=== PATIENT | female | born 1940 | race Caucasian/White ===

== ENCOUNTER 2018-08-04 14:03 | Emergency (ER) | payer MEDICARE, OTHER ==
[~2018-08-04] VITALS: Ht 165.1 cm; Wt 79.4 kg
--- OUTSIDE RECORDS SUMMARY | ~2018-08-04 | XMS | Encounter Summary ---
Demographics + + + | Address | [address] | | | [place] [address] | + + + | Home Phone | | + + + | Preferred Language | Unknown | + + + | Marital Status | | + + + | Yazidi Affiliation | 1077 | + + + | Race | Unknown | + + + | Ethnic Group | Unknown | + + + Author + + + | Author | [facility] | | | and [place] | + + + | Organization | [facility] | | | and [place] | + + + | Address | Unknown | + + + | Phone | Unavailable | + + + Support + + + + + | Name | Relationship | Address | Phone | + + + + + | Rafiq Farias | ECON | [address] | | | | | [place] | | | | | [address] | | + + + + + Care Team Providers + +------+ + | Care Finance Controller Name | Role | Phone | + +------+ + | Kahlil Campbell MD | PCP | | + +------+ + Reason for Visit + + + | Reason | Comments | + + + | Medication Question | Name of the H2 eladio Dr. Prabhakar told her to use in 2017 | + + + Encounter Details +--------+ + + + + | Date | Type | Department | Care Team | Description | +--------+ + + + + | 05/27/ | Telephone | [facility] | Shai Prabhakar MD | Medication Question | | 2019 | | GASTROENTEROLOGY | [address], [facility] | (Name of the H2 | | | | [address] | [address] [place], [place] | eladio Dr. Prabhakar | | | | [address] [place] | [address] | told her to use in | | | | [address] | | 2017) | | | | [phone] | | | +--------+ + + + + Social History + +-------+ +--------+ + | Tobacco Use | Types | Packs/Day | Years | Date | | | | | Used | | + +-------+ +--------+ + | Former Smoker | | 0.5 | 40 | Quit: 05/13/1993 | + +-------+ +--------+ + + +---+---+---+ | Smokeless Tobacco: | | | | | Never Used | | | | + +---+---+---+ + + | Comments: stopped smoking 10 years ago | + + + + +---------+ + | Alcohol Use | Drinks/We | oz/Week | Comments | | | ek | | | + + +---------+ + | Yes | 1 | 0.6 | once weekly | | | Glasses | | | | | of wine | | | + + +---------+ + + + + | Sex Assigned at | Date Recorded | | | | + + + | Not on file | | + + + as of this encounter Plan of Treatment Not on fileas of this encounter Visit Diagnoses Not on filein this encounter"
--- OUTSIDE RECORDS SUMMARY | ~2018-08-04 | XMS | Clinical Summary ---
Demographics + + + | Address | [address] [facility] [address] [facility] | | | [place] [address] | + + + | Home Phone | | + + + | Preferred Language | Unknown | + + + | Marital Status | | + + + | Anabaptism Affiliation | MET | + + + | Race | White | + + + | Ethnic Group | Not or | + + + Author + + + | Author | [facility] | + + + | Organization | [facility] | + + + | Address | Unknown | + + + | Phone | Unavailable | + + + Support + + + + + | Name | Relationship | Address | Phone | + + + + + | SUSANNAH FARIAS | ECON | [address] | | | | | [place] | | | | | [address] | | + + + + + Care Team Providers + +------+ + | Care Basket Bottom Machine Operator Name | Role | Phone | + +------+ + | No Pcp Per Patient | PP | Unavailable | + +------+ + Source Comments [facility] and [facility] Allergies + + + + + + | Active Allergy | Reactions | Severity | Noted | Comments | | | | | Date | | + + + + + + | Erythromycin | Unknown | Low | 02/20/20 | Stomach pain | | | | | 16 | | + + + + + + | Iodine | Hives | | 03/29/20 | | | | | | 08 | | + + + + + + | Latex | Rash | Low | 10/10/20 | Irritation - | | | | | 16 | sensitivity | + + + + + + | Penicillins | Hives | Low | 10/10/20 | Welts on neck | | | | | 16 | | + + + + + + Current Medications + + + +---------+------+------+-------+ | Prescription | Sig. | Disp. | Refills | Star | End | Statu | | | | | | t | Date | s | | | | | | Date | | | + + + +---------+------+------+-------+ | LIPITOR ORAL | None Entered | | | | | Activ | | | | | | | | e | + + + +---------+------+------+-------+ | LEXAPRO ORAL | None Entered | | | | | Activ | | | | | | | | e | + + + +---------+------+------+-------+ | LEVOTHYROXINE ORAL | None Entered | | | | | Activ | | | | | | | | e | + + + +---------+------+------+-------+ | CALCIUM-D ORAL | None Entered | | | | | Activ | | | | | | | | e | + + + +---------+------+------+-------+ | polyvinyl | Instill 1 Drop into | 3 | 3 | 12/2 | | Activ | | pyrrolidone-polyviny | both eyes as needed. | bottles, | | 2/20 | | e | | l alcohol | 4 to 6 times daily | 45ml | | 09 | | | | (FRESHKOTE) | | | | | | | | 2-0.9-1.8 % | | | | | | | | Ophthalmic Drops | | | | | | | + + + +---------+------+------+-------+ | MAGNESIUM ORAL | Take by mouth. | | | | | Activ | | | | | | | | e | + + + +---------+------+------+-------+ Active Problems + + + | Problem | Noted Date | + + + | Epiphora due to insufficient drainage | 12/05/2012 | + + + | Keratoconjunctivitis sicca (HCC) | 04/06/2008 | + + + + + | Overview: ICD10 | + + Family History + + +------+ + | Medical History | Relation | Name | Comments | + + +------+ + | Cancer | | | benson Bess nephew, grandmother | + + +------+ + + +------+--------+ + | Relation | Name | Status | Comments | + +------+--------+ + Social History + +-------+ +--------+------+ | Tobacco Use | Types | Packs/Day | Years | Date | | | | | Used | | + +-------+ +--------+------+ | Former Smoker | | | | | + +-------+ +--------+------+ + + | Comments: Quit 14 yrs ago | + + + + +---------+ + | Alcohol Use | Drinks/We | oz/Week | Comments | | | ek | | | + + +---------+ + | Yes | | | Occasional | + + +---------+ + + + + | Sex Assigned at | Date Recorded | | | | + + + | Not on file | | + + + Plan of Treatment + + + + + | Health Maintenance | Due Date | Last Done | Comments | + + + + + | Pneumococcal (Adult) | | | | | (1 of 2 - PCV13) | 8 | | | + + + + + | Influenza (Flu) | | | | | vaccination (#1) | 8 | | | + + + + + Results Not on filefrom Last 3 Months Insurance + +--------+ +--------+ + + | Payer | Benefi | Subscriber | Type | Phone | Address | | | t Plan | ID | | | | | | / | | | | | | | Group | | | | | + +--------+ +--------+ + + | MEDICARE | MEDICA | xxxxxxxxxx | Medica | [phone]-- | [address] | | | RE A & | | re | [phone] | [place] [address] | | | B | | | | | + +--------+ +--------+ + + | MODA MEDICARE | MODA | xxxxxxxxx | POS | [phone] | [address] [address] | | SUPPLEMENT | MEDICA | | | [phone] | [place] [address] | | | RE | | | | | | | SUPPLE | | | | | | | MENT | | | | | + +--------+ +--------+ + + + +--------+ +--------+ + + | Guarantor Name | Accoun | Relation to | Date | Phone | Billing Address | | | t Type | Patient | of | | | | | | | | | | + +--------+ +--------+ + + | GABBY FARIAS | Person | Self [birth year] | Home: | [address] | | | al/Fam | | 1941 | [phone] | [place] [address] | | | keena | | | [phone] | | + +--------+ +--------+ + +"
--- OUTSIDE RECORDS SUMMARY | ~2018-08-04 | XMS | Clinical Summary ---
Demographics + + + | Address | [address] | | | [place] [address] | + + + | Home Phone | | + + + | Preferred Language | Unknown | + + + | Marital Status | | + + + | Holiness Affiliation | 1077 | + + + | Race | Unknown | + + + | Ethnic Group | Unknown | + + + Author + + + | Author | [facility] | | | and [place] | + + + | Organization | [facility] | | | and Garciaana [...] [place] | | | | | [address] | | + + + + + Care Team Providers + +------+ + | Care Plant And Equipment Worker Name | Role | Phone | + +------+ + | Kahlil Campbell MD | PP | | + +------+ + Allergies + + + + + + | Active Allergy | Reactions | Severity | Noted | Comments | | | | | Date | | + + + + + + | Codeine | | | 03/30/20 | I don't remember | | | | | 15 | | + + + + + + | Erythromycin | Other (See Comments) | Low | | Stomach pain | + + + + + + | Iodine | Hives | Low | | IV Contrast caused | | | | | | Welts on neck | + + + + + + | Latex | Rash | Low | 04/19/20 | Irritation - | | | | | 10 | sensitivity | + + + + + + | Penicillins | Hives | Low | 04/19/20 | Welts on neck | | | | | 10 | | + + + + + + Current Medications + + + +---------+------+------+-------+ | Prescription | Sig. | Disp. | Refills | Star | End | Statu | | | | | | t | Date | s | | | | | | Date | | | + + + +---------+------+------+-------+ | cholecalciferol | Take 1,000 Units by | | | 09/1 | | Activ | | (VITAMIN D-3) 1000 | mouth Daily. | | | 4/20 | | e | | UNITS TABS | | | | 12 | | | + + + +---------+------+------+-------+ | hydrocortisone | Apply a thin layer | | | 09/1 | | Activ | | 2.5% cream | to the affected | | | 4/20 | | e | | | areas twice daily | | | 12 | | | + + + +---------+------+------+-------+ | aspirin 81 MG | Take two by mouth | | | 09/1 | | Activ | | tablet | daily. | | | 4/20 | | e | | | | | | 12 | | | + + + +---------+------+------+-------+ | escitalopram | Take 10 mg by mouth | | | 09/1 | | Activ | | (LEXAPRO) 10 mg | Daily. | | | 420 | | e | | tablet | | | | 12 | | | + + + +---------+------+------+-------+ | Psyllium | POWD - Take as | | | 09/1 | | Activ | | (METAMUCIL PO) | directed once daily | | | 4/20 | | e | | | | | | 12 | | | + + + +---------+------+------+-------+ | atorvaSTATin | Take 10 mg by mouth | | | 09/1 | | Activ | | (LIPITOR) 10 mg | Daily. | | | 4/20 | | e | | tablet | | | | 12 | | | + + + +---------+------+------+-------+ | [place]-3 Fatty | CPDR - one by mouth | | | 12/0 | | Activ | | Acids (OMEGA 3 PO) | daily | | | 8/20 | | e | | | | | | 10 | | | + + + +---------+------+------+-------+ | Calcium Carbonate | 1/2 tablet daily | | | 1 | | Activ | | 1500 MG TABS | | | | 4/20 | | e | | | | | | 12 | | | + + + +---------+------+------+-------+ | melatonin 3 mg | Take 3 mg by mouth | | | | | Activ | | TABS | nightly. | | | | | e | + + + +---------+------+------+-------+ | levothyroxine | Take 88 mcg by mouth | | | 01/11 | | Activ | | (SYNTHROID, | Daily. | | | 08/30 | | e | | LEVOTHROID) 75 MCG | | | | 12 | | | | tablet | | | | | | | + + + +---------+------+------+-------+ | Magnesium 500 MG | Take 500 mg by mouth | | | | | Activ | | tablet | Daily. | | | | | e | + + + +---------+------+------+-------+ | doxycycline | take 1 tablet by | | 0 | | | Activ | | (VIBRAMYCIN) 100 mg | mouth twice a day | | | 11/29 | | e | | tablet | | | | 17 | | | + + + +---------+------+------+-------+ | FRESHKOTE 2.7-2 % | use once daily into | | 0 | 03/13 | | Activ | | ophthalmic solution | affected eye if | | | 06/01 | | e | | | needed as directed | | | 17 | | | + + + +---------+------+------+-------+ | tretinoin | apply SPARINGLY to | | 1 | 10/0 | | Activ | | (RETIN-A) 0.05 % | affected area once | | | 4/20 | | e | | cream | daily at bedtime | | | 17 | | | + + + +---------+------+------+-------+ | triamcinolone | apply 1 INCH | | 0 | 11/2 | | Activ | | (KENALOG) 0.1% | topically to | | | 7/20 | | e | | lotion | affected area FOR | | | 17 | | | | | ITCHING ON SCALP | | | | | | | | once daily | | | | | | + + + +---------+------+------+-------+ | cetirizine | Take 10 mg by mouth | | | | | Activ | | (ZYRTEC) 10 mg | Daily. | | | | | e | | tablet | | | | | | | + + + +---------+------+------+-------+ | gentamicin 0.1% | apply to affected | | 0 | 12/0 | | Activ | | cream | area twice a day | | | 7/20 | | e | | | | | | 17 | | | + + + +---------+------+------+-------+ | Escitalopram | Take by mouth. | | | | | Activ | | Oxalate (LEXAPRO PO) | | | | | | e | + + + +---------+------+------+-------+ | Atorvastatin | Take by mouth. | | | | | Activ | | Calcium (LIPITOR PO) | | | | | | e | + + + +---------+------+------+-------+ | nitroglycerin | Place 1 inch | 1 Tube | 1 | 05/3 | | Activ | | (RECTIV) 0.4% rectal | rectally Twice | | | 0/20 | | e | | ointment | daily as needed for | | | 18 | | | | | Pain. Or compounded | | | | | | | | formula | | | | | | + + + +---------+------+------+-------+ Active Problems + + + | Problem | Noted Date | + + + | Lower esophageal ring (Yeni) | 04/24/2017 | + + + | Unspecified hypothyroidism | 04/22/2014 | + + + + + | Overview: ICD-10 Record update | + + + + + | Other specified disorder of rectum and anus | 04/22/2014 | + + + | Unspecified asthma(493.90) | 04/22/2014 | + + + + + | Overview: ICD-10 Record update | + + + + + | Unspecified disorder of esophagus | 04/22/2014 | + + + + + | Overview: ICD-10 Record update | + + + + + | Other and unspecified hyperlipidemia | 04/22/2014 | + + + | Disorder of bone and cartilage, unspecified | 04/22/2014 | + + + + + | Overview: ICD-10 Record update | + + + + + | Depressive disorder, not elsewhere classified | 04/22/2014 | + + + + + | Overview: JUSTIN [id number] | + + + + + | Unspecified menopausal and postmenopausal disorder | 04/22/2014 | + + + + + | Overview: ICD-10 Record update | + + + + + | Sheylacea | 04/22/2014 | + + + | Gastric ulcer, unspecified as acute or chronic, without mention | 04/22/2014 | | of hemorrhage, perforation, or obstruction | | + + + + + | Overview: ICD-10 Record update | + + + + + | Diverticulosis of colon (without mention of hemorrhage) | 04/22/2014 | + + + + + | Overview: ICD-10 Record update | + + + + + | Disturbance of skin sensation | 04/22/2014 | + + + | Osteoarthrosis, unspecified whether generalized or localized, | 04/22/2014 | | unspecified site | | + + + + + | Overview: ICD-10 Record update | + + +---+ + | . | 04/22/2014 | +---+ + + + | Overview: ICD-10 Record update | + + + + + | Lumbago | 04/22/2014 | + + + | Unspecified vitamin D deficiency | 04/22/2014 | + + + + + | Overview: ICD-10 Record update | + + + + + | Sciatica | 04/22/2014 | + + + | Epiphora due to insufficient drainage | 12/05/2012 | + + + | DYSPHAGIA-UNSPECIFIED | 03/27/2011 | + + + + + | Overview: ICD-10 Record update | + + + + + | ESOPHAGEAL REFLUX | 12/25/2010 | + + + | Keratoconjunctivitis sicca (HCC) | 04/06/2008 | + + + + + | Overview: Overview: | | ICD10 | + + + +---+ | ESOPHAGEAL SPASM | | + +---+ | ADNEXAL PAIN | | + +---+ | DIVERTICULOSIS OF COLON | | + +---+ | Mixed anxiety depressive disorder | | + +---+ + + | Overview: JUSTIN [id number] Decision | + + + +---+ | COLONIC POLYPS, HX OF | | + +---+ | HYPERCHOLESTEROLEMIA | | + +---+ | HYPOTHYROIDISM | | + +---+ | ADENOCARCINOMA, COLON, FAMILY HX | | + +---+ | PHARYNGITIS | | + +---+ | BRONCHITIS | | + +---+ | IMPAIRED FASTING GLUCOSE | | + +---+ Encounters +--------+ + + + + | Date | Type | Specialty | Care Team | Description | +--------+ + + + + | 05/27/ | Telephone | | Shai Prabhakar MD | Medication Question | | 2019 | | | | (Name of the H2 | | | | | | eladio Dr. Prabhakar | | | | | | told her to use in | | | | | | 2016) | +--------+ + + + + from Last 3 Months Family History + + +------+ + | Medical History | Relation | Name | Comments | + + +------+ + | Cancer | Father | | stomach cancer | + + +------+ + | Stroke | Maternal | | | | | Grandfath | | | | | er | | | + + +------+ + | Colon cancer | Maternal | | | | | Grandmoth | | | | | er | | | + + +------+ + | Cancer | Maternal | | lung cancer | | | Uncle | | | + + +------+ + | Cancer | Mother | | colon cancer | + + +------+ + | Cancer | Paternal | | Breast Cancer | | | Aunt | | | + + +------+ + | Heart defect | Paternal | | | | | Grandfath | | | | | er | | | + + +------+ + | Heart defect | Paternal | | | | | Grandmoth | | | | | er | | | + + +------+ + | Cancer | Sister | | breast cancer | + + +------+ + | Coronary artery | Sister | | | | disease | | | | + + +------+ + + +------+--------+ + | Relation | Name | Status | Comments | + +------+--------+ + | Father | | | | + +------+--------+ + | Maternal Grandfather | | | | + +------+--------+ + | Maternal Grandmother | | | | + +------+--------+ + | Maternal Uncle | | | | + +------+--------+ + | Mother | | | | + +------+--------+ + | Paternal Aunt | | | | + +------+--------+ + | Paternal Grandfather | | | | + +------+--------+ + | Paternal Grandmother | | | | + +------+--------+ + | Sister | | | | + +------+--------+ + | Sister | | | | + +------+--------+ + Social History + +-------+ +--------+ + [...] on file | | + + + Last Filed Vital Signs + + + + | Vital Sign | Reading | Time Taken | + + + + | Blood Pressure | 122/51 | 04/25/2017 1030 PST | + + + + | Pulse | 66 | 04/25/2017 1030 PST | + + + + | Temperature | 37 C (98.6 F) | 04/25/2017 1000 PST | + + + + | Respiratory Rate | 14 | 04/25/2017 1000 PST | + + + + | Oxygen Saturation | 96% | 04/25/2017 1030 PST | + + + + | Inhaled Oxygen | - | - | | Concentration | | | + + + + | Weight | 81.3 kg (179 lb 3.7 | 04/25/2017 0826 PST | | | oz) | | + + + + | Height | 165.1 cm (5' 5") | 04/25/2017825 PST | + + + + | Body Mass Index | 29.83 | 04/25/2017825 PST | + + + + Plan of Treatment + + + + + | Health Maintenance | Due Date | Last Done | Comments | + + + + + | Vaccine: | | | | | Dtap/Tdap/Td (1 - | 2 | | | | Tdap) | | | | + + + + + | Vaccine: Zoster (1 | | | | | of 2) | 3 | | | + + + + + | Vaccine: | | | | | Pneumococcal 65+ | 8 | | | | Low/Medium Risk (1 | | | | | of 2 - PCV13) | | | | + + + + + | Adult Annual | | | | | Wellness Visit | 5 | | | + + + + + | Vaccine: Influenza | | | | | (#1) | 8 | | | + + + + + | Colorectal Cancer | | 05/19/2014, 05/19/2014, | | | Screening | 5 | 05/29/2010 | | | (Colonoscopy) | | | | + + + + [...] + + | MEDICARE | MEDICA | [id number] | Medica | [phone]- | | | | RE | | re | [phone] | | | | PART A | | | | | | | AND B | | | | | + +--------+ +--------+ + + | MODA | MODA | [id number] | Indemn | [phone] | [address] [address] | | | HEALTH | | ity | [address] | [place] [address] | | | MDCR | | | | | | | SUPPL | | | | | + +--------+ [...] | | al/Fam | | 1941 | [phone] | [place] [address] | | | keena | | | [phone] | | + +--------+ +--------+ + +
--- OUTSIDE RECORDS SUMMARY | ~2018-08-04 | XMS | Clinical Summary ---
Demographics + + + | Address | [address] [facility] [address] | | | [place] [address] | + + + | Home Phone | | + + + | Preferred Language | Unknown | + + + | Marital Status | | + + + | Mu-Ism Affiliation | MET | + + + | Race | White | + + + | Ethnic Group | Not or | + + + Author + + + | Author | [facility] | + + + | Organization | [facility] | + + + | Address | Unknown | + + + | Phone | Unavailable | + + + Support + + + + + | Name | Relationship | Address | Phone | + + + + + | SUSANNAH FARIAS | ECON | [address] | | | | | [place] | | | | | [address] | | + + + + + Care Team Providers + +------+ + | Care Motor Vehicle Light Assembler Name | Role | Phone | + +------+ + | No Pcp Per Patient | PP | Unavailable | + +------+ + Source Comments [facility] and [facility] Allergies + + + + + [...] | Medica | +1-- | [address] | | | RE A & | | re | [phone] | [place] [address] | | | B | | | | | + +--------+ +--------+ + + | MODA MEDICARE | MODA | xxxxxxxxx | POS | [phone] | [address] [address] | | SUPPLEMENT | MEDICA | | | [phone] | [place] [address] | | | RE | | | [...] | 1941 | [phone] | [place] [address] | | | keena | | | [phone] | | + +--------+ +--------+ + +"
--- OUTSIDE RECORDS SUMMARY | ~2018-08-04 | XMS | Encounter Summary ---
Demographics + + + | Address | [address] | | | [place] [address] | + + + | Home Phone | | + + + | Preferred Language | Unknown | + + + | Marital Status | | + + + | Hoahaoism Affiliation | 1077 | + + + | Race | Unknown | + + + | Ethnic Group | Unknown | + + + Author + + + | Author | [facility] | | | and [place] | + + + | Organization | [facility] | | | and Garciaana [...] [place] | | | | | [address] | | + + + + + Care Team Providers + +------+ + | Care Sebd Teacher Name | Role | Phone | + [...] + + | 05/27/ | Telephone | [facility] | Shai Prabhakar MD | Medication Question | | 2019 | | GASTROENTEROLOGY | [address], [facility] | (Name of the H2 | | | | [address] | [address] [place], [place] | eladio Dr. Prabhakar | | | | [address] [place] | [address] | told her to use in | | | | [address] | | 2017) | | | | [phone] | | | +--------+ + + + [...]
--- OUTSIDE RECORDS SUMMARY | ~2018-08-04 | XMS | Clinical Summary ---
Demographics + + + | Address | [address] | | | [place] [address] | + + + | Home Phone | | + + + | Preferred Language | Unknown | + + + | Marital Status | | + + + | Scientologist Affiliation | 1077 | + + + | Race | Unknown | + + + | Ethnic Group | Unknown | + + + Author + + + | Author | [facility] | | | and [place] | + + + | Organization | [facility] | | | and Garciaana [...] [place] | | | | | [address] | | + + + + + Care Team Providers + +------+ + | Care Costumer Name | Role | Phone | + [...] | | + + + +---------+------+------+-------+ | [place]-3 Fatty | CPDR - one by mouth [...] + + + + | Overview: JUSTIN [id number] R2 | + + + + + [...] + +---+ + + | Overview: JUSTIN [id number] Decision | + + + +---+ | [...] + + | MEDICARE | MEDICA | [id number] | Medica | [phone]- | | | | RE | | re | [phone] | | | | PART A | | | | | | | AND B | | | | | + +--------+ +--------+ + + | MODA | MODA | [id number] | Indemn | [id number] | [address] [address] | | | HEALTH | | ity | [address] | [place] [address] | | | MDCR | | | [...] | 1941 | [phone] | [place] [address] | | | keena | | | [phone] | | + +--------+ +--------+ + +
[~2018-08-04 14:03] MED LIST: CALCIUM CITRAT1 EA10 PO; LEVAQUIN500 MG PO; LEVOTHYROXINE75 MCG PO; LEXAPRO10 MG PO; LIPITOR10 MG PO; MAGNESIUM250 M1 PO; NORCO 5-325 TA1 EACH PO; PRAVASTATIN SOD10 MG PO; THERA TEARS NU1 EACH PO; VITAMIN D3400 UNIT PO; ZYRTEC10 MG PO
== END 2018-08-04 18:10 | disposition home or self-care (01) ==
LOC: ED 14:03
DX: K57.30 Diverticulosis of large intestine without perforation or abscess without bleeding (principal); E03.9 Hypothyroidism, unspecified; E78.00 Pure hypercholesterolemia, unspecified; F32.9 Major depressive disorder, single episode, unspecified; Z87.891 Personal history of nicotine dependence; Z90.710 Acquired absence of both cervix and uterus; Z88.0 Allergy status to penicillin; Z91.048 Other nonmedicinal substance allergy status; Z91.040 Latex allergy status; Z79.899 Other long term (current) drug therapy
CPT/HCPCS: 74177; 80053; 81001; 85025; 96361; 96374; 99284-25; J1200; J7040; Q9967

== ENCOUNTER 2018-09-01 10:46 | Emergency (ER) | payer MEDICARE, OTHER ==
[~2018-09-01] VITALS: Ht 165.1 cm; Wt 79.4 kg
--- OUTSIDE RECORDS SUMMARY | ~2018-09-01 | XMS | Encounter Summary ---
Demographics + + + | Address | [address] | | | [place] [address] | + + + | Home Phone | | + + + | Preferred Language | Unknown | + + + | Marital Status | | + + + | Sikh Affiliation | 1077 | + + + | Race | Unknown | + + + | Ethnic Group | Unknown | + + + Author + + + | Author | [facility] | | | and [place] | + + + | Organization | [facility] | | | and [place] [...] [place] | | | | | [address] | | + + + + + Care Team Providers + +------+ + | Care Bias Machine Operator Name | Role | Phone | + +------+ + | Ion Prasad MD | PCP | | + +------+ + Encounter Details +--------+ + + + + | Date | Type | Department | Care Team | Description | +--------+ + + + + | 08/25/ | Abstract | [facility] | Provider, | | | 2018 | | GASTROENTEROLOGY | MD [address] | | | | | [address] [place] | [place] | | | | | [address] | [place] [address] | | | | | [address] | | | | | | [phone] | | | +--------+ + + + [...] on file | | + + + + + + + | Job Start Date | Occupation | Industry | + + + + | Not on file | Not on file | Not on file | + + + + + + + + | Travel History | Travel Start | Travel End | + + + + + + | No recent travel history available. | + + documented as of this encounter Progress Radha Hernandes - 08/25/2018 1154 PDTLabs for the collection date of 07/07/2018 from [facility] were not entered due to illegibly. As a courtesy, the labs were re-requested by Electronic Medical Records today at 13:20 p.m. The labs are expected to be received today. [facility] phone: 13:38 p.m. labs received. Originals sent to Medical Records for scanning. documented in this encounter Plan of Treatment +--------+---------+ + + + | Date | Type | Specialty | Care Team | Description | +--------+---------+ + + + | 09/16/ | Office | Gastroenterology | Shai Prabhakar MD | | | 2018 | Visit | | [address] | | | | | | [address] | | | | | | [address] | | | | | | | | +--------+---------+ + + + documented as of this encounter Procedures + +--------+ + + + | Procedure Name | Priori | Date/Time | Associated Diagnosis | Comments | | | ty | | | | + +--------+ + + + | HB TERM HC INFLUENZA | Routin | 08/25/2018 | | Results for this | | A OR B ANTIGEN | e | | | procedure are in the | | RAPID | | | | results section. | + +--------+ + + + | EXTERNAL LAB: BUN | Routin | 07/09/2018 | | Results for this | | | e | | | procedure are in the | | | | | | results section. | + +--------+ + + + | EXTERNAL LAB: | Routin | 07/09/2018 | | Results for this | | GLUCOSE | e | | | procedure are in the | | | | | | results section. | + +--------+ + + + | EXTERNAL LAB: ALT | Routin | 07/09/2018 | | Results for this | | | e | | | procedure are in the | | | | | | results section. | + +--------+ + + + | EXTERNAL LAB: | Routin | 07/09/2018 | | Results for this | | ALKALINE PHOSPHATASE | e | | | procedure are in the | | | | | | results section. | + +--------+ + + + | EXTERNAL LAB: | Routin | 07/09/2018 | | Results for this | | ALBUMIN | e | | | procedure are in the | | | | | | results section. | + +--------+ + + + | EXTERNAL LAB: | Routin | 07/09/2018 | | Results for this | | PROTEIN, TOTAL | e | | | procedure are in the | | | | | | results section. | + +--------+ + + + | EXTERNAL LAB: | Routin | 07/09/2018 | | Results for this | | MAGNESIUM | e | | | procedure are in the | | | | | | results section. | + +--------+ + + + | EXTERNAL LAB: | Routin | 07/09/2018 | | Results for this | | CALCIUM | e | | | procedure are in the | | | | | | results section. | + +--------+ + + + | EXTERNAL LAB: CARBON | Routin | 07/09/2018 | | Results for this | | DIOXIDE | e | | | procedure are in the | | | | | | results section. | + +--------+ + + + | EXTERNAL LAB: | Routin | 07/09/2018 | | Results for this | | CHLORIDE | e | | | procedure are in the | | | | | | results section. | + +--------+ + + + | EXTERNAL LAB: | Routin | 07/09/2018 | | Results for this | | POTASSIUM | e | | | procedure are in the | | | | | | results section. | + +--------+ + + + | EXTERNAL LAB: SODIUM | Routin | 07/09/2018 | | Results for this | | | e | | | procedure are in the | | | | | | results section. | + +--------+ + + + | EXTERNAL LAB: CBC | Routin | 07/09/2018 | | Results for this | | | e | | | procedure are in the | | | | | | results section. | + +--------+ + + + | EXTERNAL LAB: EGFR | Routin | 07/09/2018 | | Results for this | | | e | | | procedure are in the | | | | | | results section. | + +--------+ + + + | EXTERNAL LAB: | Routin | 07/09/2018 | | Results for this | | CREATININE | e | | | procedure are in the | | | | | | results section. | + +--------+ + + + | CBC WITH | Routin | 07/09/2018 | | Results for this | | DIFFERENTIAL | e | | | procedure are in the | | | | | | results section. | + +--------+ + + + | COMPREHENSIVE | Routin | 07/09/2018 | | Results for this | | METABOLIC PANEL | e | | | procedure are in the | | | | | | results section. | + +--------+ + + + | EXTERNAL LAB: BUN | Routin | 07/08/2018 | | Results for this | | | e | | | procedure are in the | | | | | | results section. | + +--------+ + + + | EXTERNAL LAB: | Routin | 07/08/2018 | | Results for this | | GLUCOSE | e | | | procedure are in the | | | | | | results section. | + +--------+ + + + | EXTERNAL LAB: ALT | Routin | 07/08/2018 | | Results for this | | | e | | | procedure are in the | | | | | | results section. | + +--------+ + + + | EXTERNAL LAB: | Routin | 07/08/2018 | | Results for this | | ALBUMIN | e | | | procedure are in the | | | | | | results section. | + +--------+ + + + | EXTERNAL LAB: | Routin | 07/08/2018 | | Results for this | | PROTEIN, TOTAL | e | | | procedure are in the | | | | | | results section. | + +--------+ + + + | EXTERNAL LAB: | Routin | 07/08/2018 | | Results for this | | MAGNESIUM | e | | | procedure are in the | | | | | | results section. | + +--------+ + + + | EXTERNAL LAB: | Routin | 07/08/2018 | | Results for this | | CALCIUM | e | | | procedure are in the | | | | | | results section. | + +--------+ + + + | EXTERNAL LAB: CARBON | Routin | 07/08/2018 | | Results for this | | DIOXIDE | e | | | procedure are in the | | | | | | results section. | + +--------+ + + + | EXTERNAL LAB: | Routin | 07/08/2018 | | Results for this | | CHLORIDE | e | | | procedure are in the | | | | | | results section. | + +--------+ + + + | EXTERNAL LAB: | Routin | 07/08/2018 | | Results for this | | POTASSIUM | e | | | procedure are in the | | | | | | results section. | + +--------+ + + + | EXTERNAL LAB: SODIUM | Routin | 07/08/2018 | | Results for this | | | e | | | procedure are in the | | | | | | results section. | + +--------+ + + + | EXTERNAL LAB: STEFF | Routin | 07/08/2018 | | Results for this | | | e | | | procedure are in the | | | | | | results section. | + +--------+ + + + | EXTERNAL LAB: | Routin | 07/08/2018 | | Results for this | | PROTIME INR | e | | | procedure are in the | | | | | | results section. | + +--------+ + + + | EXTERNAL LAB: SANDHYA | Routin | 07/08/2018 | | Results for this | | | e | | | procedure are in the | | | | | | results section. | + +--------+ + + + | EXTERNAL LAB: | Routin | 07/08/2018 | | Results for this | | CREATININE | e | | | procedure are in the | | | | | | results section. | + +--------+ + + + | HB TERM HC INFLUENZA | Routin | 07/08/2018 | | Results for this | | A OR B ANTIGEN | e | | | procedure are in the | | RAPID | | | | results section. | + +--------+ + + + | CBC WITH | Routin | 07/08/2018 | | Results for this | | DIFFERENTIAL | e | | | procedure are in the | | | | | | results section. | + +--------+ + + + | COMPREHENSIVE | Routin | 07/08/2018 | | Results for this | | METABOLIC PANEL | e | | | procedure are in the | | | | | | results section. | + +--------+ + + + | EXTERNAL LAB: BUN | Routin | 07/07/2018 | | Results for this | | | e | | | procedure are in the | | | | | | results section. | + +--------+ + + + | EXTERNAL LAB: | Routin | 07/07/2018 | | Results for this | | GLUCOSE | e | | | procedure are in the | | | | | | results section. | + +--------+ + + + | EXTERNAL LAB: LIPASE | Routin | 07/07/2018 | | Results for this | | | e | | | procedure are in the | | | | | | results section. | + +--------+ + + + | EXTERNAL LAB: ALT | Routin | 07/07/2018 | | Results for this | | | e | | | procedure are in the | | | | | | results section. | + +--------+ + + + | EXTERNAL LAB: | Routin | 07/07/2018 | | Results for this | | ALBUMIN | e | | | procedure are in the | | | | | | results section. | + +--------+ + + + | EXTERNAL LAB: | Routin | 07/07/2018 | | Results for this | | PROTEIN, TOTAL | e | | | procedure are in the | | | | | | results section. | + +--------+ + + + | EXTERNAL LAB: | Routin | 07/07/2018 | | Results for this | | CALCIUM | e | | | procedure are in the | | | | | | results section. | + +--------+ + + + | EXTERNAL LAB: CARBON | Routin | 07/07/2018 | | Results for this | | DIOXIDE | e | | | procedure are in the | | | | | | results section. | + +--------+ + + + | EXTERNAL LAB: | Routin | 07/07/2018 | | Results for this | | CHLORIDE | e | | | procedure are in the | | | | | | results section. | + +--------+ + + + | EXTERNAL LAB: | Routin | 07/07/2018 | | Results for this | | POTASSIUM | e | | | procedure are in the | | | | | | results section. | + +--------+ + + + | EXTERNAL LAB: SODIUM | Routin | 07/07/2018 | | Results for this | | | e | | | procedure are in the | | | | | | results section. | + +--------+ + + + | EXTERNAL LAB: | Routin | 07/07/2018 | | Results for this | | URINALYSIS | e | | | procedure are in the | | | | | | results section. | + +--------+ + + + | EXTERNAL LAB: CBC | Routin | 07/07/2018 | | Results for this | | | e | | | procedure are in the | | | | | | results section. | + +--------+ + + + | EXTERNAL LAB: EGFR | Routin | 07/07/2018 | | Results for this | | | e | | | procedure are in the | | | | | | results section. | + +--------+ + + + | EXTERNAL LAB: | Routin | 07/07/2018 | | Results for this | | CREATININE | e | | | procedure are in the | | | | | | results section. | + +--------+ + + + | CUELLAR'S STAIN | Routin | 07/07/2018 | | Results for this | | | e | | | procedure are in the | | | | | | results section. | + +--------+ + + + | URINALYSIS, REFLEX | Routin | 07/07/2018 | | Results for this | | MICROSCOPIC AND/OR | e | | | procedure are in the | | CULTURE | | | | results section. | + +--------+ + + + | OCCULT BLOOD, STOOL, | Routin | 07/07/2018 | | Results for this | | SPECIMEN 1 | e | | | procedure are in the | | | | | | results section. | + +--------+ + + + | OCCULT BLOOD, | Routin | 07/07/2018 | | Results for this | | GASTRIC | e | | | procedure are in the | | | | | | results section. | + +--------+ + + + | CBC WITH | Routin | 07/07/2018 | | Results for this | | DIFFERENTIAL | e | | | procedure are in the | | | | | | results section. | + +--------+ + + + | CULTURE, STOOL | Routin | 07/07/2018 | | Results for this | | | e | | | procedure are in the | | | | | | results section. | + +--------+ + + + | COMPREHENSIVE | Routin | 07/07/2018 | | Results for this | | METABOLIC PANEL | e | | | procedure are in the | | | | | | results section. | + +--------+ + + + documented in this encounter Results HB TERM HC INFLUENZA A OR B ANTIGEN RAPID (08/25/2018) + + | Specimen | + + | | + + + + + | Narrative | Performed At | + + + | Opened in error. | | + + + External Lab: eGFR (07/09/2018) + +--------+ + + + | Component | Value | Ref Range | Performed | Pathologist | | | | | At | Signature | + +--------+ + + + | eGFR, | 85 (A) | 89 - 99,999 | EXTERNAL | | | External | | | LAB | | + +--------+ + + + | eGFR, | 98 | 89 - 99,999 | EXTERNAL | | | | | | LAB | | | [place], | | | | | | External | | | | | + +--------+ + + + + + | Specimen | + + | Blood | + + + +---------+ + + | Performing | Address | City/State/Zipcode | Phone Number | | Organization | | | | + +---------+ + + | EXTERNAL LAB | | | | + +---------+ + + Comprehensive Metabolic Panel (07/09/2018) + +---------+ + + + | Component | Value | Ref Range | Performed | Pathologist | | | | | At | Signature | + +---------+ + + + | Anion Gap | 11 | 9 - 18 mmol/L | | | + +---------+ + + + | Globulin | 3.4 | 2.0 - 3.6 g/dL | | | + +---------+ + + + | Albumin/[place] | 1.0 (A) | 1.3 - 2.7 Ratio | | | | bulin Ratio | | | | | + +---------+ + + + + + | Specimen | + + | Blood | + + External Lab: BUN (07/09/2018) + +-------+ + + + | Component | Value | Ref Range | Performed | Pathologist | | | | | At | Signature | + +-------+ + + + | BUN, | 5 (A) | 8 - 24 | EXTERNAL | | | External | | | LAB | | + +-------+ + + + + +---------+ + + | Performing | Address | City/State/Zipcode | Phone Number | | Organization | | | | + +---------+ + + | EXTERNAL LAB | | | | + +---------+ + + External Lab: Glucose (07/09/2018) + +---------+ + + + | Component | Value | Ref Range | Performed | Pathologist | | | | | At | Signature | + +---------+ + + + | Glucose, | 103 (A) | 70 - 99 | EXTERNAL | | | External | | | LAB | | + +---------+ + + + + +---------+ + + | Performing | Address | City/State/Zipcode | Phone Number | | Organization | | | | + +---------+ + + | EXTERNAL LAB | | | | + +---------+ + + External Lab: ALT (07/09/2018) + +-------+ + + + | Component | Value | Ref Range | Performed | Pathologist | | | | | At | Signature | + +-------+ + + + | ALT, | 11 | 9 - 48 | EXTERNAL | | | External | | | LAB | | + +-------+ + + + + +---------+ + + | Performing | Address | City/State/Zipcode | Phone Number | | Organization | | | | + +---------+ + + | EXTERNAL LAB | | | | + +---------+ + + External Lab: Alkaline Phosphatase (07/09/2018) + +-------+ + + + | Component | Value | Ref Range | Performed | Pathologist | | | | | At | Signature | + +-------+ + + + | ALP, | 45 | 40 - 118 | EXTERNAL | | | External | | | LAB | | + +-------+ + + + + +---------+ + + | Performing | Address | City/State/Zipcode | Phone Number | | Organization | | | | + +---------+ + + | EXTERNAL LAB | | | | + +---------+ + + External Lab: Albumin (07/09/2018) + +---------+ + + + | Component | Value | Ref Range | Performed | Pathologist | | | | | At | Signature | + +---------+ + + + | Albumin, | 3.4 (A) | 3.5 - 5.2 | EXTERNAL | | | External | | | LAB | | + +---------+ + + + + +---------+ + + | Performing | Address | City/State/Zipcode | Phone Number | | Organization | | | | + +---------+ + + | EXTERNAL LAB | | | | + +---------+ + + External Lab: Protein, Total (07/09/2018) + +-------+ + + + | Component | Value | Ref Range | Performed | Pathologist | | | | | At | Signature | + +-------+ + + + | Protein, | 6.8 | 5.9 - 8.4 | EXTERNAL | | | Total, | | | LAB | | | External | | | | | + +-------+ + + + + +---------+ + + | Performing | Address | City/State/Zipcode | Phone Number | | Organization | | | | + +---------+ + + | EXTERNAL LAB | | | | + +---------+ + + External Lab: Magnesium (07/09/2018) + +-------+ + + + | Component | Value | Ref Range | Performed | Pathologist | | | | | At | Signature | + +-------+ + + + | Magnesium, | 2.2 | 1.7 - 2.4 | EXTERNAL | | | External | | | LAB | | + +-------+ + + + + +---------+ + + | Performing | Address | City/State/Zipcode | Phone Number | | Organization | | | | + +---------+ + + | EXTERNAL LAB | | | | + +---------+ + + External Lab: Calcium (07/09/2018) + +-------+ + + + | Component | Value | Ref Range | Performed | Pathologist | | | | | At | Signature | + +-------+ + + + | Calcium, | 9.3 | 8.6 - 10.3 | EXTERNAL | | | External | | | LAB | | + +-------+ + + + + +---------+ + + | Performing | Address | City/State/Zipcode | Phone Number | | Organization | | | | + +---------+ + + | EXTERNAL LAB | | | | + +---------+ + + External Lab: Carbon Dioxide (07/09/2018) + +-------+ + + + | Component | Value | Ref Range | Performed | Pathologist | | | | | At | Signature | + +-------+ + + + | Carbon | 29 | 21 - 31 | EXTERNAL | | | Dioxide, | | | LAB | | | External | | | | | + +-------+ + + + + +---------+ + + | Performing | Address | City/State/Zipcode | Phone Number | | Organization | | | | + +---------+ + + | EXTERNAL LAB | | | | + +---------+ + + External Lab: Chloride (07/09/2018) + +-------+ + + + | Component | Value | Ref Range | Performed | Pathologist | | | | | At | Signature | + +-------+ + + + | Chloride, | 104 | 96 - 108 | EXTERNAL | | | External | | | LAB | | + +-------+ + + + + +---------+ + + | Performing | Address | City/State/Zipcode | Phone Number | | Organization | | | | + +---------+ + + | EXTERNAL LAB | | | | + +---------+ + + External Lab: Potassium (07/09/2018) + +-------+ + + + | Component | Value | Ref Range | Performed | Pathologist | | | | | At | Signature | + +-------+ + + + | Potassium, | 3.8 | 3.3 - 5.1 | EXTERNAL | | | External | | | LAB | | + +-------+ + + + + +---------+ + + | Performing | Address | City/State/Zipcode | Phone Number | | Organization | | | | + +---------+ + + | EXTERNAL LAB | | | | + +---------+ + + External Lab: Sodium (07/09/2018) + +-------+ + + + | Component | Value | Ref Range | Performed | Pathologist | | | | | At | Signature | + +-------+ + + + | Sodium, | 144 | 133 - 145 | EXTERNAL | | | External | | | LAB | | + +-------+ + + + + +---------+ + + | Performing | Address | City/State/Zipcode | Phone Number | | Organization | | | | + +---------+ + + | EXTERNAL LAB | | | | + +---------+ + + External Lab: Creatinine (07/09/2018) + +-------+ + + + | Component | Value | Ref Range | Performed | Pathologist | | | | | At | Signature | + +-------+ + + + | Creatinine, | 0.70 | 0.4 - 1.1 | EXTERNAL | | | External | | | LAB | | + +-------+ + + + + + | Specimen | + + | Blood | + + + +---------+ + + | Performing | Address | City/State/Zipcode | Phone Number | | Organization | | | | + +---------+ + + | EXTERNAL LAB | | | | + +---------+ + + CBC with Differential (07/09/2018) + +-------+ + + + | Component | Value | Ref Range | Performed | Pathologist | | | | | At | Signature | + +-------+ + + + | MCH | 31.8 | 26.0 - 33.0 pg | | | + +-------+ + + + | MCHC | 34.0 | 30.0 - 36.0 | | | | | | g/dL | | | + +-------+ + + + + + | Specimen | + + | Blood | + + External Lab: CBC (07/09/2018) + + + + + + | Component | Value | Ref Range | Performed | Pathologist | | | | | At | Signature | + + + + + + | WBC, | 5.5 | 3.8 - 11.2 | EXTERNAL | | | External | | | LAB | | + + + + + + | HGB, | 12.1 | 11.6 - 15.1 | EXTERNAL | | | External | | | LAB | | + + + + + + | HCT, | 35.6 | 34.1 - 44.2 | EXTERNAL | | | External | | | LAB | | + + + + + + | PLT, | 261 | 150 - 450 | EXTERNAL | | | External | | | LAB | | + + + + + + | RBC, | 3.81 (A) | 3.9 - 5.2 | EXTERNAL | | | External | | | LAB | | + + + + + + | MCV, | 93 | 80 - 100 | EXTERNAL | | | External | | | LAB | | + + + + + + | RDW, | 11.9 | 11 - 15 | EXTERNAL | | | External | | | LAB | | + + + + + + + +---------+ + + | Performing | Address | City/State/Zipcode | Phone Number | | Organization | | | | + +---------+ + + | EXTERNAL LAB | | | | + +---------+ + + HB TERM HC INFLUENZA A OR B ANTIGEN RAPID (07/08/2018) + + + + + + | Component | Value | Ref Range | Performed | Pathologist | | | | | At | Signature | + + + + + + | Influenza A | Negative | | | | | Ag | | | | | + + + + + + | Influenza B | Negative | | | | | Ag | | | | | + + + + + + + + | Specimen | + + | | + + External Lab: eGFR (07/08/2018) + +-------+ + + + | Component | Value | Ref Range | Performed | Pathologist | | | | | At | Signature | + +-------+ + + + | eGFR, | 89 | 89 - 99,999 | EXTERNAL | | | External | | | LAB | | + +-------+ + + + | eGFR, | 103 | 89 - 99,999 | EXTERNAL | | | | | | LAB | | | [place], | | | | | | External | | | | | + +-------+ + + + + + | Specimen | + + | Blood | + + + +---------+ + + | Performing | Address | City/State/Zipcode | Phone Number | | Organization | | | | + +---------+ + + | EXTERNAL LAB | | | | + +---------+ + + Comprehensive Metabolic Panel (07/08/2018) + +---------+ + + + | Component | Value | Ref Range | Performed | Pathologist | | | | | At | Signature | + +---------+ + + + | Anion Gap | 10 | 9 - 18 mmol/L | | | + +---------+ + + + | Globulin | 3.2 | 2.0 - 3.6 g/dL | | | + +---------+ + + + | Albumin/[place] | 1.0 (A) | 1.3 - 2.7 Ratio | | | | bulin Ratio | | | | | + +---------+ + + + + + | Specimen | + + | Blood | + + External Lab: EDILSON (07/08/2018) + +-------+ + + + | Component | Value | Ref Range | Performed | Pathologist | | | | | At | Signature | + +-------+ + + + | BUN, | 6 (A) | 8 - 24 | EXTERNAL | | | External | | | LAB | | + +-------+ + + + + +---------+ + + | Performing | Address | City/State/Zipcode | Phone Number | | Organization | | | | + +---------+ + + | EXTERNAL LAB | | | | + +---------+ + + External Lab: Glucose (07/08/2018) + +-------+ + + + | Component | Value | Ref Range | Performed | Pathologist | | | | | At | Signature | + +-------+ + + + | Glucose, | 94 | 70 - 99 | EXTERNAL | | | External | | | LAB | | + +-------+ + + + + +---------+ + + | Performing | Address | City/State/Zipcode | Phone Number | | Organization | | | | + +---------+ + + | EXTERNAL LAB | | | | + +---------+ + + External Lab: ALT (07/08/2018) + +-------+ + + + | Component | Value | Ref Range | Performed | Pathologist | | | | | At | Signature | + +-------+ + + + | ALT, | 1.0 | 1 - 3 | EXTERNAL | | | External | | | LAB | | + +-------+ + + + + +---------+ + + | Performing | Address | City/State/Zipcode | Phone Number | | Organization | | | | + +---------+ + + | EXTERNAL LAB | | | | + +---------+ + + External Lab: Albumin (07/08/2018) + +---------+ + + + | Component | Value | Ref Range | Performed | Pathologist | | | | | At | Signature | + +---------+ + + + | Albumin, | 3.1 (A) | 3.5 - 5.2 | EXTERNAL | | | External | | | LAB | | + +---------+ + + + + +---------+ + + | Performing | Address | City/State/Zipcode | Phone Number | | Organization | | | | + +---------+ + + | EXTERNAL LAB | | | | + +---------+ + + External Lab: Protein, Total (07/08/2018) + +-------+ + + + | Component | Value | Ref Range | Performed | Pathologist | | | | | At | Signature | + +-------+ + + + | Protein, | 6.3 | 5.9 - 8.4 | EXTERNAL | | | Total, | | | LAB | | | External | | | | | + +-------+ + + + + +---------+ + + | Performing | Address | City/State/Zipcode | Phone Number | | Organization | | | | + +---------+ + + | EXTERNAL LAB | | | | + +---------+ + + External Lab: Magnesium (07/08/2018) + +-------+ + + + | Component | Value | Ref Range | Performed | Pathologist | | | | | At | Signature | + +-------+ + + + | Magnesium, | 2.0 | 1.7 - 2.4 | EXTERNAL | | | External | | | LAB | | + +-------+ + + + + +---------+ + + | Performing | Address | City/State/Zipcode | Phone Number | | Organization | | | | + +---------+ + + | EXTERNAL LAB | | | | + +---------+ + + External Lab: Calcium (07/08/2018) + +-------+ + + + | Component | Value | Ref Range | Performed | Pathologist | | | | | At | Signature | + +-------+ + + + | Calcium, | 8.8 | 8.6 - 10.3 | EXTERNAL | | | External | | | LAB | | + +-------+ + + + + +---------+ + + | Performing | Address | City/State/Zipcode | Phone Number | | Organization | | | | + +---------+ + + | EXTERNAL LAB | | | | + +---------+ + + External Lab: Carbon Dioxide (07/08/2018) + +-------+ + + + | Component | Value | Ref Range | Performed | Pathologist | | | | | At | Signature | + +-------+ + + + | Carbon | 27 | 21 - 31 | EXTERNAL | | | Dioxide, | | | LAB | | | External | | | | | + +-------+ + + + + +---------+ + + | Performing | Address | City/State/Zipcode | Phone Number | | Organization | | | | + +---------+ + + | EXTERNAL LAB | | | | + +---------+ + + External Lab: Chloride (07/08/2018) + +-------+ + + + | Component | Value | Ref Range | Performed | Pathologist | | | | | At | Signature | + +-------+ + + + | Chloride, | 104 | 96 - 108 | EXTERNAL | | | External | | | LAB | | + +-------+ + + + + +---------+ + + | Performing | Address | City/State/Zipcode | Phone Number | | Organization | | | | + +---------+ + + | EXTERNAL LAB | | | | + +---------+ + + External Lab: Potassium (07/08/2018) + +-------+ + + + | Component | Value | Ref Range | Performed | Pathologist | | | | | At | Signature | + +-------+ + + + | Potassium, | 3.6 | 3.3 - 5.1 | EXTERNAL | | | External | | | LAB | | + +-------+ + + + + +---------+ + + | Performing | Address | City/State/Zipcode | Phone Number | | Organization | | | | + +---------+ + + | EXTERNAL LAB | | | | + +---------+ + + External Lab: Sodium (07/08/2018) + +-------+ + + + | Component | Value | Ref Range | Performed | Pathologist | | | | | At | Signature | + +-------+ + + + | Sodium, | 141 | 133 - 145 | EXTERNAL | | | External | | | LAB | | + +-------+ + + + + +---------+ + + | Performing | Address | City/State/Zipcode | Phone Number | | Organization | | | | + +---------+ + + | EXTERNAL LAB | | | | + +---------+ + + External Lab: Creatinine (07/08/2018) + +-------+ + + + | Component | Value | Ref Range | Performed | Pathologist | | | | | At | Signature | + +-------+ + + + | Creatinine, | 0.60 | 0.4 - 1.1 | EXTERNAL | | | External | | | LAB | | + +-------+ + + + + + | Specimen | + + | Blood | + + + +---------+ + + | Performing | Address | City/State/Zipcode | Phone Number | | Organization | | | | + +---------+ + + | EXTERNAL LAB | | | | + +---------+ + + External Lab: Rayna MADDOX (07/08/2018) + +-------+ + + + | Component | Value | Ref Range | Performed | Pathologist | | | | | At | Signature | + +-------+ + + + | INR, | 1.07 | | EXTERNAL | | | External | | | LAB | | + +-------+ + + + | PT, | 13.3 | 11.5 - 14.5 | EXTERNAL | | | External | | | LAB | | + +-------+ + + + + + | Specimen | + + | Blood | + + + +---------+ + + | Performing | Address | City/State/Zipcode | Phone Number | | Organization | | | | + +---------+ + + | EXTERNAL LAB | | | | + +---------+ + + CBC with Differential (07/08/2018) + +-------+ + + + | Component | Value | Ref Range | Performed | Pathologist | | | | | At | Signature | + +-------+ + + + | MCH | 31.0 | 26.0 - 33.0 pg | | | + +-------+ + + + | MCHC | 33.0 | 30.0 - 36.0 | | | | | | g/dL | | | + +-------+ + + + + + | Specimen | + + | Blood | + + External Lab: CBC (07/08/2018) + + + + + + | Component | Value | Ref Range | Performed | Pathologist | | | | | At | Signature | + + + + + + | WBC, | 5.7 | 3.8 - 11.2 | EXTERNAL | | | External | | | LAB | | + + + + + + | HGB, | 11.4 (A) | 11.6 - 15.1 | EXTERNAL | | | External | | | LAB | | + + + + + + | HCT, | 34.5 | 34.1 - 44.2 | EXTERNAL | | | External | | | LAB | | + + + + + + | PLT, | 221 | 150 - 450 | EXTERNAL | | | External | | | LAB | | + + + + + + | RBC, | 3.68 (A) | 3.9 - 5.2 | EXTERNAL | | | External | | | LAB | | + + + + + + | MCV, | 94 | 80 - 100 | EXTERNAL | | | External | | | LAB | | + + + + + + | RDW, | 12 | 11 - 15 | EXTERNAL | | | External | | | LAB | | + + + + + + + +---------+ + + | Performing | Address | City/State/Zipcode | Phone Number | | Organization | | | | + +---------+ + + | EXTERNAL LAB | | | | + +---------+ + + Culture, Stool (07/07/2018) + + + + + + | Component | Value | Ref Range | Performed | Pathologist | | | | | At | Signature | + + + + + + | Result | 1. No Salmonella, | | | | | | Shigella, E. coli 0157 | | | | | | isolated. | | | | + + + + + + | Result | 2. Negative for | | | | | | Campylobacter Antigen | | | | + + + + + + | Result | 3. Shiga Toxin 1/ Shiga | | | | | | Toxin 2 not detected | | | | + + + + + + + + | Specimen | + + | Stool | + + Cuellar'S Stain (07/07/2018) + + + + + + | Component | Value | Ref Range | Performed | Pathologist | | | | | At | Signature | + + + + + + | Result | No WBC's seen | | | | + + + + + + + + | Specimen | + + | Stool | + + Occult Blood, Stool, Specimen 1 (07/07/2018) + + + + + + | Component | Value | Ref Range | Performed | Pathologist | | | | | At | Signature | + + + + + + | Result | Positive | | | | + + + + + + + + | Specimen | + + | Stool | + + Occult Blood, Gastric (07/07/2018) + + + + + + | Component | Value | Ref Range | Performed | Pathologist | | | | | At | Signature | + + + + + + | Result | Positive | | | | + + + + + + + + | Specimen | + + | Body Fluid | + + External Lab: eGFR (07/07/2018) + +--------+ + + + | Component | Value | Ref Range | Performed | Pathologist | | | | | At | Signature | + +--------+ + + + | eGFR, | 85 (A) | 89 - 99,999 | EXTERNAL | | | External | | | LAB | | + +--------+ + + + | eGFR, | 98 | 89 - 99,999 | EXTERNAL | | | | | | LAB | | | [place], | | | | | | External | | | | | + +--------+ + + + + + | Specimen | + + | Blood | + + + +---------+ + + | Performing | Address | City/State/Zipcode | Phone Number | | Organization | | | | + +---------+ + + | EXTERNAL LAB | | | | + +---------+ + + Comprehensive Metabolic Panel (07/07/2018) + +---------+ + + + | Component | Value | Ref Range | Performed | Pathologist | | | | | At | Signature | + +---------+ + + + | Anion Gap | 12 | 9 - 18 mmol/L | | | + +---------+ + + + | Globulin | 3.3 | 2.0 - 3.6 g/dL | | | + +---------+ + + + | Albumin/[place] | 1.1 (A) | 1.3 - 2.7 Ratio | | | | bulin Ratio | | | | | + +---------+ + + + + + | Specimen | + + | Blood | + + External Lab: EDILSON (07/07/2018) + +-------+ + + + | Component | Value | Ref Range | Performed | Pathologist | | | | | At | Signature | + +-------+ + + + | BUN, | 8 | 8 - 24 | EXTERNAL | | | External | | | LAB | | + +-------+ + + + + +---------+ + + | Performing | Address | City/State/Zipcode | Phone Number | | Organization | | | | + +---------+ + + | EXTERNAL LAB | | | | + +---------+ + + External Lab: Glucose (07/07/2018) + +-------+ + + + | Component | Value | Ref Range | Performed | Pathologist | | | | | At | Signature | + +-------+ + + + | Glucose, | 98 | 70 - 99 | EXTERNAL | | | External | | | LAB | | + +-------+ + + + + +---------+ + + | Performing | Address | City/State/Zipcode | Phone Number | | Organization | | | | + +---------+ + + | EXTERNAL LAB | | | | + +---------+ + + External Lab: Lipase (07/07/2018) + +--------+ + + + | Component | Value | Ref Range | Performed | Pathologist | | | | | At | Signature | + +--------+ + + + | Lipase, | 17 (A) | 18 - 71 | EXTERNAL | | | External | | | LAB | | + +--------+ + + + + +---------+ + + | Performing | Address | City/State/Zipcode | Phone Number | | Organization | | | | + +---------+ + + | EXTERNAL LAB | | | | + +---------+ + + External Lab: ALT (07/07/2018) + +-------+ + + + | Component | Value | Ref Range | Performed | Pathologist | | | | | At | Signature | + +-------+ + + + | ALT, | 12 | 9 - 48 | EXTERNAL | | | External | | | LAB | | + +-------+ + + + + +---------+ + + | Performing | Address | City/State/Zipcode | Phone Number | | Organization | | | | + +---------+ + + | EXTERNAL LAB | | | | + +---------+ + + External Lab: Albumin (07/07/2018) + +-------+ + + + | Component | Value | Ref Range | Performed | Pathologist | | | | | At | Signature | + +-------+ + + + | Albumin, | 3.5 | 3.5 - 5.2 | EXTERNAL | | | External | | | LAB | | + +-------+ + + + + +---------+ + + | Performing | Address | City/State/Zipcode | Phone Number | | Organization | | | | + +---------+ + + | EXTERNAL LAB | | | | + +---------+ + + External Lab: Protein, Total (07/07/2018) + +-------+ + + + | Component | Value | Ref Range | Performed | Pathologist | | | | | At | Signature | + +-------+ + + + | Protein, | 6.8 | 5.9 - 8.4 | EXTERNAL | | | Total, | | | LAB | | | External | | | | | + +-------+ + + + + +---------+ + + | Performing | Address | City/State/Zipcode | Phone Number | | Organization | | | | + +---------+ + + | EXTERNAL LAB | | | | + +---------+ + + External Lab: Calcium (07/07/2018) + +-------+ + + + | Component | Value | Ref Range | Performed | Pathologist | | | | | At | Signature | + +-------+ + + + | Calcium, | 8.8 | 8.6 - 10.3 | EXTERNAL | | | External | | | LAB | | + +-------+ + + + + +---------+ + + | Performing | Address | City/State/Zipcode | Phone Number | | Organization | | | | + +---------+ + + | EXTERNAL LAB | | | | + +---------+ + + External Lab: Carbon Dioxide (07/07/2018) + +-------+ + + + | Component | Value | Ref Range | Performed | Pathologist | | | | | At | Signature | + +-------+ + + + | Carbon | 26 | 21 - 31 | EXTERNAL | | | Dioxide, | | | LAB | | | External | | | | | + +-------+ + + + + +---------+ + + | Performing | Address | City/State/Zipcode | Phone Number | | Organization | | | | + +---------+ + + | EXTERNAL LAB | | | | + +---------+ + + External Lab: Chloride (07/07/2018) + +-------+ + + + | Component | Value | Ref Range | Performed | Pathologist | | | | | At | Signature | + +-------+ + + + | Chloride, | 97 | 96 - 108 | EXTERNAL | | | External | | | LAB | | + +-------+ + + + + +---------+ + + | Performing | Address | City/State/Zipcode | Phone Number | | Organization | | | | + +---------+ + + | EXTERNAL LAB | | | | + +---------+ + + External Lab: Potassium (07/07/2018) + +-------+ + + + | Component | Value | Ref Range | Performed | Pathologist | | | | | At | Signature | + +-------+ + + + | Potassium, | 3.8 | 3.3 - 5.1 | EXTERNAL | | | External | | | LAB | | + +-------+ + + + + +---------+ + + | Performing | Address | City/State/Zipcode | Phone Number | | Organization | | | | + +---------+ + + | EXTERNAL LAB | | | | + +---------+ + + External Lab: Sodium (07/07/2018) + +-------+ + + + | Component | Value | Ref Range | Performed | Pathologist | | | | | At | Signature | + +-------+ + + + | Sodium, | 135 | 133 - 145 | EXTERNAL | | | External | | | LAB | | + +-------+ + + + + +---------+ + + | Performing | Address | City/State/Zipcode | Phone Number | | Organization | | | | + +---------+ + + | EXTERNAL LAB | | | | + +---------+ + + External Lab: Creatinine (07/07/2018) + +-------+ + + + | Component | Value | Ref Range | Performed | Pathologist | | | | | At | Signature | + +-------+ + + + | Creatinine, | 0.70 | 0.4 - 1.1 | EXTERNAL | | | External | | | LAB | | + +-------+ + + + + + | Specimen | + + | Blood | + + + +---------+ + + | Performing | Address | City/State/Zipcode | Phone Number | | Organization | | | | + +---------+ + + | EXTERNAL LAB | | | | + +---------+ + + Urinalysis, Reflex Microscopic and/or Culture (07/07/2018) + + + + + + | Component | Value | Ref Range | Performed | Pathologist | | | | | At | Signature | + + + + + + | Color | [place] | | | | + + + + + + | Clarity | Clear | | | | + + + + + + | Bilirubin, | Negative | Negative | | | | Urine | | | | | + + + + + + | Urobilinoge | 0.2 E.U./dL | < 0.2 mg/dL, | | | | n, Urine | | 1.0 mg/dL, 4.0 | | | | | | mg/dL, Normal, | | | | | | 1.0 E.U./dL, | | | | | | 0.2 E.U./dL, | | | | | | 0.2 mg/dL, | | | | | | Negative, 1 | | | | | | mg/dL, <2.0 | | | | | | mg/dL | | | + + + + + + | Nitrite, | Negative | Negative | | | | Urine | | | | | + + + + + + | WBC | Negative | | | | + + + + + + | BACTERIA UA | Negative | Negative /HPF | | | + + + + + + | MUCUS UA | Negative | Negative /LPF | | | + + + + + + | Epithelial | Occasional | | | | | Cells | | | | | + + + + + + + + | Specimen | + + | Urine | + + External Lab: Urinalysis (07/07/2018) + + + + + + | Component | Value | Ref Range | Performed | Pathologist | | | | | At | Signature | + + + + + + | UA Blood, | Small | | EXTERNAL | | | External | | | LAB | | + + + + + + | UA Glucose, | Negative | | EXTERNAL | | | External | | | LAB | | + + + + + + | UA Ketones, | Negative | | EXTERNAL | | | External | | | LAB | | + + + + + + | UA Ph, | 6.5 | 5 - 7.5 | EXTERNAL | | | External | | | LAB | | + + + + + + | UA | Negative | | EXTERNAL | | | Proteins, | | | LAB | | | External | | | | | + + + + + + | UA RBC, | 0-2 | | EXTERNAL | | | External | | | LAB | | + + + + + + | UA Specific | <1.005 | 1.005 - 1.03 | EXTERNAL | | | [place], | | | LAB | | | External | | | | | + + + + + + + +---------+ + + | Performing | Address | City/State/Zipcode | Phone Number | | Organization | | | | + +---------+ + + | EXTERNAL LAB | | | | + +---------+ + + CBC with Differential (07/07/2018) + +-------+ + + + | Component | Value | Ref Range | Performed | Pathologist | | | | | At | Signature | + +-------+ + + + | MCH | 31.9 | 26.0 - 33.0 pg | | | + +-------+ + + + | MCHC | 34.4 | 30.0 - 36.0 | | | | | | g/dL | | | + +-------+ + + + | BASOPHILS % | 0.4 | 0.0 - 2.0 % | | | + +-------+ + + + + + | Specimen | + + | Blood | + + External Lab: CBC (07/07/2018) + + + + + + | Component | Value | Ref Range | Performed | Pathologist | | | | | At | Signature | + + + + + + | WBC, | 9.8 | 3.8 - 11.2 | EXTERNAL | | | External | | | LAB | | + + + + + + | HGB, | 12.3 | 11.6 - 15.1 | EXTERNAL | | | External | | | LAB | | + + + + + + | HCT, | 35.8 | 34.1 - 44.2 | EXTERNAL | | | External | | | LAB | | + + + + + + | PLT, | 221 | 150 - 450 | EXTERNAL | | | External | | | LAB | | + + + + + + | Neutrophils | 64.5 | 40 - 70 | EXTERNAL | | | %, | | | LAB | | | External | | | | | + + + + + + | Lymphocytes | 22.2 | 20 - 45 | EXTERNAL | | | %, | | | LAB | | | External | | | | | + + + + + + | Monocytes | 22.2 | 20 - 45 | EXTERNAL | | | %, External | | | LAB | | + + + + + + | Eosinophils | 1.6 | 0 - 6 | EXTERNAL | | | %, | | | LAB | | | External | | | | | + + + + + + | Neutrophils | 6.34 | 1.4 - 7 | EXTERNAL | | | , Absolute, | | | LAB | | | External | | | | | + + + + + + | Lymphocytes | 2.18 | 0.7 - 4.5 | EXTERNAL | | | , Absolute, | | | LAB | | | External | | | | | + + + + + + | Monocytes, | 1.08 (A) | 0.1 - 1 | EXTERNAL | | | Absolute, | | | LAB | | | External | | | | | + + + + + + | Eosinophils | 0.16 | 0 - 0.6 | EXTERNAL | | | , Absolute | | | LAB | | + + + + + + | Basophils, | 0.04 | 0 - 0.2 | EXTERNAL | | | Absolute | | | LAB | | + + + + + + | RBC, | 3.86 (A) | 3.9 - 5.2 | EXTERNAL | | | External | | | LAB | | + + + + + + | MCV, | 93 | 80 - 100 | EXTERNAL | | | External | | | LAB | | + + + + + + | RDW, | 12.1 | 11 - 15 | EXTERNAL | | | External | | | LAB | | + + + + + + + +---------+ + + | Performing | Address | City/State/Zipcode | Phone Number | | Organization | | | | + +---------+ + + | EXTERNAL LAB | | | | + +---------+ + + documented in this encounter Visit Diagnoses Not on filedocumented in this encounter"
--- OUTSIDE RECORDS SUMMARY | ~2018-09-01 | XMS | Clinical Summary ---
Demographics + + + | Address | [address] | | | [place] [address] | + + + | Home Phone | | + + + | Preferred Language | Unknown | + + + | Marital Status | | + + + | Taoism Affiliation | 1077 | + + + | Race | Unknown | + + + | Ethnic Group | Unknown | + + + Author + + + | Author | [facility] | | | and [place] | + + + | Organization | [facility] | | | and [place] | [...] [place] | | | | | [address] | | + + + + + Care Team Providers + +------+ + | Care Observatory Director Name | Role | Phone | + +------+ + | Ion Prasad MD | PP | | + +------+ [...] | + + + + + + Medications + + + +---------+------+------+-------+ | Medication | Sig | Dispensed | Refills | Star | End | Statu | | | | | | t | Date | s | | | | | | Date | | | + + + +---------+------+------+-------+ | cholecalciferol | Take 1,000 Units by | | 0 | 09/1 | | Activ | | (VITAMIN D-3) 1000 | mouth Daily. | | | 4/20 | | e | | UNITS TABS | | | | 12 | | | + + + +---------+------+------+-------+ | hydrocortisone | Apply a thin layer | | 0 | 09/1 | | Activ | | 2.5% cream | to the affected | | | 4/20 | | e | | | areas twice daily | | | 12 | | | + + + +---------+------+------+-------+ | aspirin 81 MG | Take two by mouth | | 0 | 09/1 | | Activ | | tablet | daily. | | | 4/20 | | e | | | | | | 12 | | | + + + +---------+------+------+-------+ | escitalopram | Take 10 mg by mouth | | 0 | 09/1 | | Activ | | (LEXAPRO) 10 mg | Daily. | | | 4/20 | | e | | tablet | | | | 12 | | | + + + +---------+------+------+-------+ | Psyllium | POWD - Take as | | 0 | 09/1 | | Activ | | (METAMUCIL PO) | directed once daily | | | 4/20 | | e | | | | | | 12 | | | + + + +---------+------+------+-------+ | atorvaSTATin | Take 10 mg by mouth | | 0 | 09/1 | | Activ | | (LIPITOR) 10 mg | Daily. | | | 4/20 | | e | | tablet | | | | 12 | | | + + + +---------+------+------+-------+ | [place]-3 Fatty | CPDR - one by mouth | | 0 | 12/0 | | Activ | | Acids (OMEGA 3 PO) | daily | | | 8/20 | | e | | | | | | 10 | | | + + + +---------+------+------+-------+ | Calcium Carbonate | 1/2 tablet daily | | 0 | 09/1 | | Activ | | 1500 MG TABS | | | | 4/20 | | e | | | | | | 12 | | | + + + +---------+------+------+-------+ | melatonin 3 mg | Take 3 mg by mouth | | 0 | | | Activ | | TABS | nightly. | | | | | e | + + + +---------+------+------+-------+ | levothyroxine | Take 88 mcg by mouth | | 0 | 01/11 | | Activ | | (SYNTHROID, | Daily. | | | 08/30 | | e | | LEVOTHROID) 75 MCG | | | | 12 | | | | tablet | | | | | | | + + + +---------+------+------+-------+ | Magnesium 500 MG | Take 500 mg by mouth | | 0 | | | Activ | | tablet | Daily. | | | | | e | + + + +---------+------+------+-------+ | doxycycline | take 1 tablet by | | 0 | 09/0 | | Activ | | (VIBRAMYCIN) 100 [...] Take 10 mg by mouth | | 0 | | | Activ | | (ZYRTEC) [...] Escitalopram | Take by mouth. | | 0 | | | Activ | | Oxalate (LEXAPRO PO) | | | | | | e | + + + +---------+------+------+-------+ | Atorvastatin | Take by mouth. | | 0 | | | Activ | | Calcium [...] | | + + + +---------+------+------+-------+ | doxycycline | Take 1 capsule by | | 0 | 01/0 | | Activ | | (VIBRAMYCIN) 100 mg | mouth 2 times daily. | | | 7/20 | | e | | capsule | For 10 days | | | 19 | | | + + + +---------+------+------+-------+ | SUDOGEST 60 MG | Take 1 tablet by | | 0 | 01/0 | | Activ | | tablet | mouth Twice daily | | | 7/20 | | e | | | as needed. | | | 19 | | | + + + +---------+------+------+-------+ | albuterol 90 | Inhale 2 puffs into | | 0 | | | Activ | | mcg/puff inhaler | the lungs every 6 | | | | | e | | | hours as needed for | | | | | | | | Wheezing. | | | | | | + + + +---------+------+------+-------+ | pravastatin | Take 10 mg by mouth | | 0 | | | Activ | | (PRAVACHOL) 10 mg | nightly. | | | | | [...] + + + + | Overview: JUSTIN [id number] | + + + + + | Unspecified menopausal and postmenopausal disorder | 04/22/2014 | + + + + + | Overview: ICD-10 Record update | + + + + + | Rosacea | 04/22/2014 | + + + | [...] | + + + | Keratoconjunctivitis sicca | 04/06/2008 | + + + + + | Overview: Overview: | | ICD10 | + + + +---+ | ESOPHAGEAL SPASM | | + +---+ | ADNEXAL PAIN | | + +---+ | DIVERTICULOSIS OF COLON | | + +---+ | Mixed anxiety depressive disorder | | + +---+ + + | Overview: JUSTIN [id number] Decision | + + + +---+ | [...] | +--------+ + + + + | 09/01/ | Telephone | | Shai Prabhakar MD | Abdominal Pain | | 2018 | | | | | +--------+ + + + + | 08/25/ | Abstract | | Provider, | | | 2019 | | | Historical, MD | | +--------+ + + + + from [...] | | + + +------+ + | Lung cancer | Sister | | | + + +------+ + + +------+ + + | Relation | Name | Status | Comments | + +------+ + + | Father | | | | | | | (Age | | | | | 72) | | + +------+ + + | Maternal Grandfather | | | | + +------+ + + | Maternal Grandmother | | | | + +------+ + + | Maternal Uncle | | | | + +------+ + + | Mother | | | | | | | (Age | | | | | 43) | | + +------+ + + | Paternal Aunt | | | | + +------+ + + | Paternal Grandfather | | | | + +------+ + + | Paternal Grandmother | | | | + +------+ + + | Sister | | | | + +------+ + + | Sister | | | | + +------+ + + Social History + +-------+ +--------+ [...] recent travel history available. | + + Last Filed Vital Signs + [...] | 81.3 kg (179 lb 3.7 | 04/25/2017825 PST | | | oz) | | + + + + | Height | 165.1 cm (5' 5") | 04/25/2017825 PST | + + + + | Body Mass Index | 29.83 | 04/25/2017825 PST | + + + + Plan of Treatment +--------+---------+ + + + | Date | Type | Specialty | Care Team | Description | +--------+---------+ + + + | 09/16/ | Office | | Shai Prabhakar MD | | | 2019 | Visit | | [address] | | | | | | [address] [place] | | | | | | [address] | | | | | | | | +--------+---------+ + + + + + + + + | Health [...] Vaccine: Influenza | | | | | (Season Ended) | 9 | | | + + + + + Procedures + +--------+ + + + | [...] | + +--------+ + + + | LABS - EXTERNAL SCAN | | 07/09/2018 | | Results for this | | | | 0:00 PST | | procedure are in the | [...] | EXTERNAL LAB: EGFR | Routin | 07/08/2018 | | Results [...] | + +--------+ + + + | ALISA'S CED | Routin | 07/07/2018 | | Results [...] section. | + +--------+ + + + from Last 3 Months Results HB TERM HC INFLUENZA A OR B ANTIGEN RAPID (08/25/2018)Only the most recent of 2 results wit hin the time period is included. + + | Specimen | + + | | + + + + + | Narrative | Performed At | + + + | Opened in error. | | + + + External Lab: EDILSON (07/09/2018)Only the most recent of 3 results within the time period is i ncluded. + +-------+ + + + | Component [...] + +---------+ + + External Lab: Glucose (07/09/2018)Only the most recent of 3 results within the time period is included. + +---------+ + + + | Component [...] + +---------+ + + External Lab: ALT (07/09/2018)Only the most recent of 3 results within the time period is i ncluded. + +-------+ + + + | Component [...] + +---------+ + + External Lab: Albumin (07/09/2018)Only the most recent of 3 results within the time period is included. + +---------+ + + + | Component [...] +---------+ + + External Lab: Protein, Total (07/09/2018)Only the most recent of 3 results within the time period is included. + +-------+ + + + | Component [...] + +---------+ + + External Lab: Magnesium (07/09/2018)Only the most recent of 2 results within the time karel esteves is included. + +-------+ + + + | Component [...] + +---------+ + + External Lab: Calcium (07/09/2018)Only the most recent of 3 results within the time period is included. + +-------+ + + + | Component [...] +---------+ + + External Lab: Carbon Dioxide (07/09/2018)Only the most recent of 3 results within the time period is included. + +-------+ + + + | Component [...] + +---------+ + + External Lab: Chloride (07/09/2018)Only the most recent of 3 results within the time period is included. + +-------+ + + + | Component [...] + +---------+ + + External Lab: Potassium (07/09/2018)Only the most recent of 3 results within the time perio d is included. + +-------+ + + + | Component [...] + +---------+ + + External Lab: Sodium (07/09/2018)Only the most recent of 3 results within the time period i s included. + +-------+ + + + | Component [...] | + +---------+ + + External Lab: CBC (07/09/2018)Only the most recent of 3 results within the time period is i ncluded. + + + + + + | [...] | + +---------+ + + External Lab: eGFR (07/09/2018)Only the most recent of 3 results within the time period is included. + +--------+ + + + | Component [...] | | | LAB | | | Peruvian, | | | | | | External [...] + +---------+ + + External Lab: Creatinine (07/09/2018)Only the most recent of 3 results within the time ranjit od is included. + +-------+ + + + | Component [...] | | | + +---------+ + + LABS - EXTERNAL SCAN (07/09/2018 0:00 PST) + + + | Narrative | Performed At | + + + | Ordered by an | | | unspecified provider. | | + + + CBC with Differential (07/09/2018)Only the most recent of 3 results within the time period is included. + +-------+ + + + | Component [...] + + | Blood | + + Comprehensive Metabolic Panel (07/09/2018)Only the most recent of 3 results within the time period is included. + +---------+ + + + | Component [...] | Blood | + + External Lab: Protime INR (07/08/2018) + +-------+ + + + | [...] | + +---------+ + + External Lab: Urinalysis (07/07/2018) + [...] - 1.03 | EXTERNAL | | | [place], | | | LAB | | | External | | | | | + + + + + + + +---------+ + + | Performing | Address | City/State/Zipcode | Phone Number | | Organization | | | | + +---------+ + + | EXTERNAL LAB | | | | + +---------+ + + Burrell'S Stain (07/07/2018) + + + + + + | Component | Value | Ref Range | Performed | Pathologist | | | | | At | Signature | + + + + + + | Result | No WBC's seen | | | | + + + + + + + + | Specimen | + + | Stool | + + Urinalysis, Reflex Microscopic and/or Culture [...] + + | Urine | + + Occult Blood, Stool, Specimen [...] + | Body Fluid | + + Culture, Stool (07/07/2018) + + [...] + + | Stool | + + from Last 3 Months Insurance + +--------+ +--------+ + +--------+ | Payer | Benefi | Subscriber | Effect | Phone | Address | Type | | | t Plan | ID | brittni | | | | | | / | | Dates | | | | | | Group | | | | | | + +--------+ +--------+ + +--------+ | MEDICARE | MEDICA | [id number] | 07/12/19 | [phone] | | Medica | | | RE | | 08-Pre | 5 | | re | | | PART A | | sent | | | | | | AND B | | | | | | + +--------+ +--------+ + +--------+ | MODA | MODA | [id number] | 07/12/19 | [phone] | [address] | Indemn | | | HEALTH | | 08-Pre | 9 | [phone] | ity | | | MDCR | | sent | | [place], | | | | [place] | | | | [place] [address] | | + +--------+ +--------+ + +--------+ + +--------+ +--------+ + + | Guarantor Name | Accoun | Relation to | Date | Phone | Billing Address | | | t Type | Patient | of | | | | | | | | | | + +--------+ +--------+ + + | Gabby Farias | Person | Self | [birth year] | [address] | | | al/Fam | | 1941 | [phone] | [place] [address] | | | keena | | | 7 (Home) | | + +--------+ +--------+ + + Advance Directives Patient has advance care planning documents on file. For more information, please contact:[facility] [place] [address]
--- OUTSIDE RECORDS SUMMARY | ~2018-09-01 | XMS | Encounter Summary ---
Demographics + + + | Address | [address] | | | [place] [address] | + + + | Home Phone | | + + + | Preferred Language | Unknown | + + + | Marital Status | | + + + | Anabaptism Affiliation | 1077 | + + + | Race | Unknown | + + + | Ethnic Group | Unknown | + + + Author + + + | Author | [facility] | | | and [place] | + + + | Organization | [facility] | | | and [place] | + + + | Address | Unknown | + + + | Phone | Unavailable | + + + Support + + + + + | Name | Relationship | Address | Phone | + + + + + | Rafiq Farias | ECON | [address] | | | | | [place] | | | | | [address] | | + + + + + Care Team Providers + +------+ + | Care Company Laundry Worker Name | Role | Phone | + +------+ + | Ion Prasad MD | PCP | | + +------+ + Reason for Visit + + + | Reason | Comments | + + + | Abdominal Pain | | + + + Encounter Details +--------+ + + + + | Date | Type | Department | Care Team | Description | +--------+ + + + + | 09/01/ | Telephone | [facility] | Shai Prabhakar MD | Abdominal Pain | | 2019 | | GASTROENTEROLOGY | [address] [place] | | | | | [address] [place] | [address] [place], [place] | | | | | [address] [place], [place] | [address] | | | | | [address] | | | | | | [phone] | | | +--------+ + + + [...] + + documented as of this encounter Plan of Treatment +--------+---------+ + + + | Date | Type | Specialty | Care Team | Description | +--------+---------+ + + + | 09/16/ | Office | Gastroenterology | Shai Prabhakar MD | | | 2019 | Visit | | [address] | | | | | | [address] [place] | | | | | | [address] | | | | | | | | +--------+---------+ + + + documented as of this encounter Visit Diagnoses Not on filedocumented in this encounter"
--- OUTSIDE RECORDS SUMMARY | ~2018-09-01 | XMS | Encounter Summary ---
Demographics + + + | Address | [address] | | | [place] [address] | + + + | Home Phone | | + + + | Preferred Language | Unknown | + + + | Marital Status | | + + + | Jain Affiliation | 1077 | + + + | Race | Unknown | + + + | Ethnic Group | Unknown | + + + Author + + + | Author | [facility] | | | and [place] | + + + | Organization | [facility] | | | and Garciaana [...] [place] | | | | | [address] | | + + + + + Care Team Providers + +------+ + | Care Slip Caster Name | Role | Phone | + [...] 2019 | | GASTROENTEROLOGY | [address], [place] | | | | | [address] [place] | [address] [place], [place] | | | | | [address] [place], [place] | [address] | | | | | [address] | | | | | | [phone] | | | +--------+ + + + [...]
--- OUTSIDE RECORDS SUMMARY | ~2018-09-01 | XMS | Encounter Summary ---
Demographics + + + | Address | [address] | | | [place] [address] | + + + | Home Phone | | + + + | Preferred Language | Unknown | + + + | Marital Status | | + + + | Uatsdin Affiliation | 1077 | + + + | Race | Unknown | + + + | Ethnic Group | Unknown | + + + Author + + + | Author | [facility] | | | and [place] | + + + | Organization | [facility] | | | and Garciaana [...] [place] | | | | | [address] | | + + + + + Care Team Providers + +------+ + | Care Campus Police Officer Name | Role | Phone | + [...] [place] | | | | | [address] | [place] [address] | | | | | [address] | | | | | | [phone] | | | +--------+ + + + [...] for the collection date of 07/07/2018 from [facility] were not entered due to illegibly. As a courtesy, the labs were re-requested by Electronic Medical Records today at 13:20 p.m. The labs are expected to be received today. [facility] phone: 13:38 p.m. labs received. Originals [...] [place] | | | | | | [address] | | | | | | | [...] | | | LAB | | | Jordanian, | | | | | | External [...] | | | LAB | | | Jordanian, | | | | | | External [...] | | | LAB | | | Jordanian, | | | | | | External [...] - 1.03 | EXTERNAL | | | [place], | | | LAB | | | [...]
--- OUTSIDE RECORDS SUMMARY | ~2018-09-01 | XMS | Clinical Summary ---
Demographics + + + | Address | [address] | | | [place] [address] | + + + | Home Phone | | + + + | Preferred Language | Unknown | + + + | Marital Status | | + + + | Judaism Affiliation | 1077 | + + + | Race | Unknown | + + + | Ethnic Group | Unknown | + + + Author + + + | Author | [facility] | | | and [place] | + + + | Organization | [facility] | | | and [...] [place] | | | | | [address] | | + + + + + Care Team Providers + +------+ + | Care Clay Artist Name | Role | Phone | + [...] | | + + + +---------+------+------+-------+ | [place]-3 Fatty | CPDR - one by mouth [...] + + + + | Overview: JUSTIN [id number] | + + + + + [...] + +---+ + + | Overview: JUSTIN [id number] Decision | + + + +---+ | [...] [place] | | | | | | [address] | | | | | | | [...] | + +--------+ + + + | LAISA'S CED | Routin | 07/07/2018 | | [...] | | | LAB | | | [place], | | | | | | External [...] - 1.03 | EXTERNAL | | | [place], | | | LAB | | | [...] + +--------+ | MEDICARE | MEDICA | [id number] | 07/12/19 | [phone] | | Medica | | | RE | | 08-Pre | 5 | | re | | | PART A | | sent | | | | | | AND B | | | | | | + +--------+ +--------+ + +--------+ | MODA | MODA | [id number] | 07/12/19 | [phone] | [address] | Indemn | | | HEALTH | | 08-Pre | 9 | [phone] | ity | | | MDCR | | sent | | [place], | | | | [place] | | | | [place] [address] | | + +--------+ +--------+ + +--------+ [...] | 1941 | [phone] | [place] [address] | | | keena | | | 7 (Home) | | + +--------+ +--------+ + + Advance Directives Patient has advance care planning documents on file. For more information, please contact:[facility] [place] [address]
--- OUTSIDE RECORDS SUMMARY | ~2018-09-01 | XMS | Clinical Summary ---
Demographics + + + | Address | [address] | | | [place] [address] | + + + | Home Phone | | + + + | Preferred Language | Unknown | + + + | Marital Status | | + + + | Holiness Affiliation | MET | + + + | Race | White | + + + | Ethnic Group | Not or | + + + Author + + + | Author | [facility] | + + + | Organization | [facility] | + + + | Address | Unknown | + + + | Phone | Unavailable | + + + Support + + + + + | Name | Relationship | Address | Phone | + + + + + | SUSANNAH FARIAS | ECON | [address] | | | | | [place] | | | | | [address] | | + + + + + Care Team Providers + +------+ + | Care Professor Of Historical Theology Name | Role | Phone | + +------+ + | No Pcp Per Patient | PP | Unavailable | + +------+ + Source Comments [facility] is fully [facility] on both [facility] and [facility] Allergies + + + + + [...] | Medica | +1-- | [address] | | | RE A & | | re | [phone] | [place] [address] | | | B | | | | | + +--------+ +--------+ + + | MODA MEDICARE | MODA | xxxxxxxxx | POS | [phone] [address] [address] | | SUPPLEMENT | MEDICA | | | [phone] | [place] [address] | | | RE | | | [...] | 1941 | [phone] | [place] [address] | | | ke[place] | | | [phone] | | + +--------+ +--------+ + +"
--- OUTSIDE RECORDS SUMMARY | ~2018-09-01 | XMS | Clinical Summary ---
Demographics + + + | Address | [address] | | | [place] [address] | + + + | Home Phone | | + + + | Preferred Language | Unknown | + + + | Marital Status | | + + + | Alevism Affiliation | MET | + + + | Race | White | + + + | Ethnic Group | Not or | + + + Author + + + | Author | [facility] | + + + | Organization | [facility] | + + + | Address | Unknown | + + + | Phone | Unavailable | + + + Support + + + + + | Name | Relationship | Address | Phone | + + + + + | SUSANNAH FARIAS | ECON | [address] | | | | | [place] | | | | | [address] | | + + + + + Care Team Providers + +------+ + | Care Campaign Marketing Specialist Name | Role | Phone | + +------+ + | No Pcp Per Patient | PP | Unavailable | + +------+ + Source Comments [facility] is fully live on both [facility] and [facility] Allergies + + + + + [...] | Medica | +1-- | [address] | | | RE A & | | re | [phone] | [place] [address] | | | B | | | | | + +--------+ +--------+ + + | MODA MEDICARE | MODA | xxxxxxxxx | POS | [phone] | [address] [address] | | SUPPLEMENT | MEDICA | | | [phone] | [place] [address] | | | RE | | | [...] | 1941 | [phone] | [place] [address] | | | keena | | | [phone] | | + +--------+ +--------+ + +"
--- OUTSIDE RECORDS SUMMARY | 2018-09-01 10:50 | XMS ---
PreManage Notification: AYLIN SCHMIDT Security Alliances Consultant Events No recent Security Events currently on file CRITERIA MET - [facility] - 2 Visits in 30 Days CARE PROVIDERS Kahlil Campbell MD Primary Care Current PHONE: Unknown oranna Case or Correctional Maintenance Technician Current PHONE: Unknown Andreas has no Care Guidelines for this patient. EChristina VISIT COUNT ([address] [facility] TOTAL 3 NOTE: Visits indicate total known visits. ED/UCC VISIT TRACKING (12 MO.) 09/01/2018 10:47 [facility] [place] TYPE: Emergency COMPLAINT: - ABD PAIN 08/04/2018 14:03 [facility] [place] TYPE: Emergency COMPLAINT: - L FLANK,ABD PAIN DIAGNOSES: - Other chcf (current) drug therapy - Left lower quadrant pain - Diverticulosis of large intestine without perforation or abscess without bleeding - Hypothyroidism, unspecified - Acquired absence of both cervix and uterus - Other nonmedicinal substance allergy status - Personal history of nicotine dependence - Latex allergy status - Pure hypercholesterolemia, unspecified - Major depressive disorder, single episode, unspecified - Allergy status to penicillin 02/27/2018 01:[address] [facility] [place] TYPE: Emergency COMPLAINT: - WEAKNESS DIAGNOSES: - Personal history of nicotine dependence - Weakness - Allergy status to penicillin - Other terminal operations manager (current) drug therapy - Latex allergy status - Hypothyroidism, unspecified - Allergy status to other drugs, medicaments and biological substances status INPATIENT VISIT TRACKING (12 MO.) No inpatient visits to display in this time frame [email or web address]
[2018-09-01] MEDS ORDERED: LEVSIN0.125 MG PO (14:30)
== END 2018-09-01 14:39 | disposition home or self-care (01) ==
LOC: ED 10:46
DX: K57.90 Diverticulosis of intestine, part unspecified, without perforation or abscess without bleeding (principal); E03.9 Hypothyroidism, unspecified; F32.9 Major depressive disorder, single episode, unspecified; Z87.891 Personal history of nicotine dependence; Z88.0 Allergy status to penicillin; Z91.040 Latex allergy status; Z79.899 Other long term (current) drug therapy
CPT/HCPCS: 80053; 81001; 85025; 99284

== ENCOUNTER 2020-11-13 09:55 | Emergency (ER) | payer MEDICARE, OTHER ==
[~2020-11-13] VITALS: Ht 165.1 cm; Wt 74.8 kg
[~2020-11-13 09:55] MED LIST changes: +KEFLEX500 MG PO; +LEVSIN0.125 MG PO; +MELOXICAM7.5 MG PO; +PYRIDIUM100 MG PO; +PYRIDIUM200 MG PO
[2020-11-13] MEDS ORDERED: CEPHALEXIN500 M1 PO (10:34)
== END 2020-11-13 11:20 | disposition home or self-care (01) ==
LOC: ED 09:55
DX: S51.812A Laceration without foreign body of left forearm, initial encounter (principal); L03.114 Cellulitis of left upper limb; W22.8XXA Striking against or struck by other objects, initial encounter; E03.9 Hypothyroidism, unspecified; E78.00 Pure hypercholesterolemia, unspecified; Z88.0 Allergy status to penicillin; Z88.8 Allergy status to other drugs, medicaments and biological substances; Z91.040 Latex allergy status; Z79.899 Other long term (current) drug therapy; Z23 Encounter for immunization
CPT/HCPCS: 90471; 90715; 99283

== ENCOUNTER 2024-01-20 08:28 | Emergency (ER) | payer MEDICARE, OTHER ==
[~2024-01-20] VITALS: Ht 165.1 cm; Wt 67.7 kg
[~2024-01-20 08:28] MED LIST changes: +CEPHALEXIN500 M1 PO
[2024-01-20] MEDS ORDERED: TRAZODONE HCL150 MG PO (08:39)
[2024-01-20] MEDS ORDERED: DULOXETINE HCL20 MG PO (08:39)
[2024-01-20] MEDS ORDERED: ALENDRONATE SOD70 MG PO (08:40)
[2024-01-20] MEDS ORDERED: LEVOTHYROXINE50 MCG PO (08:40)
[2024-01-20] MEDS ORDERED: ASPIRIN 81 MG CHEW PO ONE (08:45)
[2024-01-20] MEDS ORDERED: NITROGLYCERIN 0.4 MG SUBL SL PRN (08:45)
[2024-01-20 09:05] LABS: BASOPHILS 0.1 % (0-2); EOSINOPHILS 0.5 % (0-6); HEMATOCRIT 40.1 % (35.0-50.0); HEMOGLOBIN 13.7 g/dL (12.0-18.0); LYMPHOCYTES 22.1 % (24-44); MCH 31.4 (27-36); MCHC 34.1 g/dl (30-36); MCV 92.3 fl (81-99); MONOCYTES 10.4 % (0-12); NEUTROPHILS 66.9 % (39-80); PLATELET COUNT 299 K/uL (140-440); RBC 4.34 M/ul (4.3-5.7); RDW 13.3 (10.5-15.0)
[2024-01-20] MEDS ORDERED: LORazepam 2 MG/ML VIAL IV ONE (09:15)
[2024-01-20 09:27] LABS: ALBUMIN 3.2 g/dL (3.4-5.0); ALBUMIN/GLOBULIN RATIO 0.76 (1.1-2.4); ALKALINE PHOSPHATASE 42 U/L (46-116); ALT (SGPT) 18 U/L (14-59); ANION GAP 11.9 (7-21); AST (SGOT) 10 U/L (15-37); BILIRUBIN, TOTAL 0.5 ng/dL (0.2-1.0); BUN/CREATININE RATIO 18.27 (6.0-28.6); CALCIUM 8.7 mg/dL (8.5-10.1); CARBON DIOXIDE 27 mmol/L (21-32); CHLORIDE 99 mmol/L (98-107); CREATININE, SERUM 0.93 mg/dL (0.55-1.02); GLOMERULAR FILTRATION RATE,EST 62 mL/min (>60); MAGNESIUM 2.1 mg/dL (1.8-2.4); POTASSIUM 3.9 mmol/L (3.5-5.1); PROTEIN, TOTAL 7.4 g/dL (6.4-8.2); UREA NITROGEN 17 mg/dL (7-18)
[2024-01-20] MEDS ORDERED: PROTONIX40 MG PO (10:24)
[2024-01-20] MEDS ORDERED: ATIVAN0.5 MG PO (10:24)
[2024-01-20 11:14] VITALS: BP 118/49
--- NOTE | 2024-01-20 12:27 | EKG ---
[facility] [address] [facility] [facility] [place], [place] [address] Signed Normal sinus rhythm Normal ECG No previous ECGs available Confirmed by Rhys Chaney MD ([id number]) on 01/20/2024 12:26:54 PM Electronically Signed By: RHYS CHANEY MD 01/20/24 1227 PATIENT NAME: AYLIN SCHMIDT Electrocardiogram DATE OF : 44 PHYSICIAN: RHYS CHANEY MD REPORT #: [id number] REPORT IS CONFIDENTIAL AND NOT TO BE RELEASED WITHOUT AUTHORIZATION
== END 2024-01-20 11:14 | disposition home or self-care (01) ==
LOC: ED 08:28
PROVIDERS: Emergency Medicine
DX: K22.0 Achalasia of cardia (principal); Z88.0 Allergy status to penicillin; Z91.048 Other nonmedicinal substance allergy status; Z91.040 Latex allergy status; Z79.890 Hormone replacement therapy; Z79.899 Other long term (current) drug therapy
CPT/HCPCS: 36415; 71045; 80053; 83735; 84484; 85025; 93005; 93010; 96374; 99285-25; J2060

== ENCOUNTER 2024-04-03 17:39 | Emergency (ER) | payer MEDICARE, OTHER ==
[~2024-04-03] VITALS: Ht 165.1 cm; Wt 76.0 kg
[~2024-04-03 17:39] MED LIST changes: +ALENDRONATE SOD70 MG PO; +ATIVAN0.5 MG PO; +DULOXETINE HCL20 MG PO; +LEVOTHYROXINE50 MCG PO; +PROTONIX40 MG PO; +TRAZODONE HCL150 MG PO
[2024-04-03] MEDS ORDERED: TETRACAINE HCL 0.5% 4 ML BTL OS PRN (18:30)
[2024-04-03] MEDS ORDERED: FLUORESCEIN SOD 1 EA STRP ONE (19:10)
[2024-04-03] MEDS ORDERED: ERYTHROMYCIN 3.5 GM HOME.PACK OP ONE (19:30)
[2024-04-03] MEDS ORDERED: FLUORESCEIN SOD 1 EA STRP OS ONE (19:30)
[2024-04-03 19:40] VITALS: BP 116/48
== END 2024-04-03 19:49 | disposition home or self-care (01) ==
LOC: ED 17:39
DX: S05.02XA Injury of conjunctiva and corneal abrasion without foreign body, left eye, initial encounter (principal); Z88.0 Allergy status to penicillin; Z91.040 Latex allergy status; Z91.048 Other nonmedicinal substance allergy status; Z79.899 Other long term (current) drug therapy; Z79.890 Hormone replacement therapy; X58.XXXA Exposure to other specified factors, initial encounter
CPT/HCPCS: 99283

== ENCOUNTER 2025-02-15 14:20 | Emergency (ER) | payer MEDICARE, OTHER ==
[~2025-02-15] VITALS: Ht 165.1 cm; Wt 72.0 kg
[2025-02-15] MEDS ORDERED: ALBUTEROL/IPRATROPIUM 3 ML NEB INH PRN (14:45)
[2025-02-15 14:53] LABS: BASOPHILS 0.9 % (0.1-1.2); EOSINOPHILS 1.7 % (0.7-5.8); LYMPHOCYTES 29.4 % (19.3-51.7); MCH 31.0 PG (25.6-32.2); MCHC 33.4 g/dL (32.2-35.5); MCV 92.9 fL (79.4-94.8); MONOCYTES 16.1 % (4.7-12.5); NEUTROPHILS 51.7 % (34.0-71.1); RBC 3.93 M/uL (3.93-5.22)
[2025-02-15] MEDS ORDERED: PAXLOVID 300-11 EAC1 PO (14:57)
[2025-02-15 15:11] LABS: ALT (SGPT) 11.0 U/L (14-59); AST (SGOT) 13.0 U/L (15-37); GLOMERULAR FILTRATION RATE,EST 72.0 mL/min (>60); PROTEIN, TOTAL 7.0 g/dL (6.4-8.2); UREA NITROGEN 6.0 mg/dL (7-18)
[2025-02-15] MEDS ORDERED: PREDNISONE20 MG PO ×2 (15:40→16:04)
[2025-02-15 16:12] VITALS: BP 135/72
--- NOTE | 2025-02-16 21:40 | EKG ---
[facility] [address] [facility] [address] [facility] [place] [address] Signed Normal sinus rhythm Minimal voltage criteria for LVH, may be normal variant ( R in aVL ) Borderline ECG When compared with ECG of 20-JAN-2024 08:32, QT has lengthened Confirmed by Dedra Sesay MD () on 02/16/2025 9:40:02 PM Electronically Signed By: DEDRA SESAY MD 02/16/25 2140 PATIENT NAME: AYLIN SCHMIDT Electrocardiogram DATE OF : 44 PHYSICIAN: DEDRA SESAY MD REPORT #: [id number] REPORT IS CONFIDENTIAL AND NOT TO BE RELEASED WITHOUT AUTHORIZATION
== END 2025-02-15 16:13 | disposition home or self-care (01) ==
LOC: ED 14:20
PROVIDERS: Emergency Medicine
DX: U07.1 COVID-19 (principal); J44.9 Chronic obstructive pulmonary disease, unspecified; E03.9 Hypothyroidism, unspecified; E78.00 Pure hypercholesterolemia, unspecified; Z88.0 Allergy status to penicillin; Z79.890 Hormone replacement therapy; Z79.899 Other long term (current) drug therapy
CPT/HCPCS: 36415; 71045; 80053; 83735; 84484; 85025; 94640; 96374; 99285-25; J2919